=== PATIENT | male | born 1940 | race Caucasian/White ===

== ENCOUNTER → 2017-07-09 | Outpatient (CLI) | payer BC ==
[~2017-07-09] MED LIST: ALL300; ATV5X; BACI1OIN; BENZ1GEL9; CEPH250T PO; CETI10TA84 PO; CLOB-65 TOP; CRG3125; CZR50; FLNIN/; LZL125; METR0.754 TOP; MULTCHW; NAPR250T43 PO; PRED-301 PO; SPIR50TA PO; TRIA0.5O TOP; [UNRECOGNIZED DRUG - OTHER]
--- NOTE | 2017-07-09 08:03 | DIAGNOSTIC IMAGING REPORT ---
ULTRASOUND EXAM AAA SCREEN CLINICAL HISTORY: 76 years-old Male presenting with AAA SCREENING. TECHNIQUE: Real-time grayscale and color and spectral Doppler ultrasound imaging of the abdominal aorta and iliac arteries was performed. COMPARISON: 02/26/2006. FINDINGS: Proximal aorta: Patent. Transverse dimension 2.0 x 1.9 cm. Mid aorta: Patent. Transverse dimension 2.1 x 2.0 cm. Distal aorta: Patent. Transverse dimension 1.9 x 1.8 cm. Right iliac artery: Patent. Transverse dimension 1.5 cm. Left iliac artery: Patent. Transverse dimension 1.3 cm. IMPRESSION: 1. No evidence of abdominal aortic aneurysm. Electronically signed by: Isidoro Joiner M.D. 07/09/2017 8:02 AM Dictated Date/Time: 07/09/2017 8:00 AM
== END | disposition home or self-care (01) ==
LOC: C.ULTR 07:28
PROVIDERS: ATTEND Internal Medicine
DX: F17.200 Nicotine dependence, unspecified, uncomplicated (principal)

== ENCOUNTER 2021-03-16 16:11 | Observation (INO) ==
[2021-03-16] MEDS ORDERED: SODIUM CHLORIDE 0.9% 1000ML 1,000 ML IV SCH (17:15)
--- NOTE | 2021-03-16 17:46 | XRay Report ---
XR chest 1V portable CLINICAL HISTORY: weakness COMPARISON STUDY: No previous studies for comparison. FINDINGS: Lung volumes are normal. Lungs are clear. There is no pneumothorax or pleural effusion. Car diac size is normal. Mediastinal contours are normal. There is no evidence for pulmonary edema. IMPRESSION: No acute cardiopulmonary findings. ACT 112: Negative or not required by law. Electronically signed by: Kevin Rogers M.D. 03/16/2021 5:45 PM
[2021-03-16 18:13] LABS: Basophils # (auto) 0.01 K/uL (0-0.2); Basophils % (auto) 0.2 %; Eosinophils # (auto) 0.01 K/uL (0-0.5); Eosinophils % (auto) 0.2 %; Hematocrit (blood only) 33.1 % (42-52); Hemoglobin 11.2 g/dL (14.0-18.0); Immature Granulocytes # (auto) 0.03 K/uL (0.00-0.02); Immature Granulocytes % (auto) 0.7 %; Lymphocytes # (auto) 0.71 K/uL (1.2-3.4); Lymphocytes % (auto) 16.6 %; Mean Corpuscular Hemoglobin 37.7 pg (25-34); Mean Corpuscular Hgb Conc 33.8 g/dL (32-36); Mean Corpuscular Volume 111.4 fL (80-100); Mean Platelet Volume 9.6 fL (7.4-10.4); Monocytes # (auto) 0.58 K/uL (0.11-0.59); Monocytes % (auto) 13.6 %; Neutrophils # (auto) 2.94 K/uL (1.4-6.5); Neutrophils % (auto) 68.7 %; Platelet Count 133 K/uL (130-400); RDW Coefficient of Variation 13.5 % (11.5-14.5); RDW Standard Deviation 54.4 fL (36.4-46.3); Red Blood Count 2.97 M/uL (4.7-6.1); White Blood Count 4.28 K/uL (4.8-10.8)
--- NOTE | 2021-03-16 18:32 | Emergency Department Note ---
Impression & Plan Weakness, Fall, Back pain ED Provider Note INFORMANT: Patient ED PROVIDER(S): Shorty Major MD CHIEF COMPLAINT: Weakness and fall PLAN: Disposition: Admitted Condition: Good Outpatient prescription management: none Referral: None MEDICAL DECISION MAKING: Patient presented because of weakness and he fell twice today. He was able to get himself up. He had some mild weakness appreciated on his physical examination. The patient was also noting concerning historical points of back pain, steroid use, and Increase problems with urinary incontinence. Because of this he underwent a work-up. The patient's CBC, chemistry panel and urinalysis were unremarkable. The patient has a mild decrease in his white blood cell count a mild anemia but normal platelets. He does have mild dysplastic syndrome. He has no significant change from prior. Lyme testing and anaplasmosis screen were negative. The patient underwent MR imaging of his spine because of the constellation of symptoms. Degenerative disc disease was noted but there is no cord compression. Head CT imaging was performed and was unremarkable. Due to the weakness and inability to safely get around he will need further management and work-up in the hospital. [facility] The patient was evaluated in the ER admitted for further management. Triage Nursing notes reviewed and agree them. Vital Signs: reviewed and remarkable for no significant abnormalities Differential diagnosis: Spinal cord pathology, infection, dehydration, metabolic abnormality, hypo/hyperglycemia, electrolyte disturbance, anemia, hypoxia, cardiac sources, intracerebral event, toxicologic, neurologic, as well as other pathologies. Diagnostics interpreted by me: ECG: Twelve-lead ECG normal sinus rhythm with sinus arrhythmia at [address] No [address] elevation or depression. No PVCs. Normal axis. Cardiac Monitoring: Cardiac monitoring ordered by me: The patient was placed on continuous cardiac monitoring and observed. It revealed a normal sinus rhythm at 89 beats per minute without ectopy or evidence of dysrhythmia. Imaging studies: MRI and head CT as above. I refer you to the EMR for further details. HPI: The patient is a 80 year old male who presents to the Emergency Room with complaints of weakness. This started today and is resulting in 2 falls. Patient denies any injury from the fall. He was unable to get himself up. A neighbor did help him up. The patient also notes the following associated symptoms, increased low back pain over the last few months, but noticeably over the last week. Patient also notes he has been having urinary incontinence over the last 2 months. The patient has taken prednisone for relieving factors. Current pain is rated as 4/10. Pt denies LOC, headache, fevers, chills, diaphoresis, visual changes, neck pain, chest pain, breathing difficulties, nausea, vomiting, abdominal pain, melena, hematochezia, numbness, lymphad enopathy, rash, or other complaints. ROS: See above HPI for pertinent positives & negatives. A total of 10 systems reviewed and were otherwise negative. PAST MEDICAL HISTORY:See Below , hypertension PAST SURGICAL HISTORY:See Below, FAMILY HISTORY:See Below SOCIAL HISTORY:See Below, retired HOME MEDICATIONS:See Below ALLERGIES:See Below VITALS:See Below PHYSICAL EXAMINATION: GENERAL: Awake, alert, tired-appearing, in no distress HENT: Normocephalic, atraumatic. Oropharynx unremarkable. EYES: Mildly pale conjunctiva. Sclera non-icteric. NECK: Inspection normal. Non-tender. Supple. No nuchal rigidity. FROM. No masses. RESPIRATORY: Clear to auscultation. No wheezes. No rales. Normal respiratory effort. CARDIAC: Normal rate. Normal rhythm. No murmurs. No rubs. Extremities warm and well perfused. Pulses equal. No JVD. GI: Soft, non-distended. No tenderness to palpation. No rebound or guarding. No masses. RECTAL: Deferred. MUSCULOSKELETAL: Atraumatic. Chest examination reveals no tenderness. The back is symmetrical on inspection without obvious abnormality. There is no CVA tenderness to palpation. No joint edema. LOWER EXTREMITIES: Calves are equal size bilaterally and non-tender. 2+edema. Chronic venous discoloration. NEURO: Normal sensorium. No sensory deficits noted. No saddle anesthesia. Patient has 4 out of 5 strength in the lower extremities which may be slightly worse on the left. SKIN: No rash or jaundice noted. Shorty Major MD Past Med/Surg History Medical History (Updated 03/16/21 @ 18:32 by Shorty Major MD) Anemia Anxiety Gout Hyperlipidemia Hypertension Myeloid dysplasia diagnosed 2014--remission for 2 years- CHEMO NO PORTS Osteoarthritis Sciatic leg pain left side Surgical History History of colonoscopy History of oral surgery X2 MANDIBULAR PILY History of tonsillectomy and adenoidectomy History of umbilical hernia repair Hx of left cataract extraction Hx of left inguinal hernia repair Hx of right inguinal hernia repair Social History Smoking Status: Never smoker Second Hand Exposure: No; Hx Alcohol Use: Yes Alcohol type: wine Hx Substance Use: No Preferred Language: Slovenian Communication Ability: Effective Payroll Associate Required: No Beliefs That Will Affect Care: None Current Living Situation: Alone Current Living Situation Comment: pt is a Feels Safe at Home: Yes Assistive Devices: Glasses Allergies Allergies Allergy/AdvReac Type Severity Reaction Status Date / Time codeine Allergy Mild bp Verified 04/25/19 06:24 increases guaifenesin Allergy Mild bp Verified 04/25/19 06:24 increases lactose Allergy Mild Gastrointestinal Verified 04/25/19 06:24 Upset tamsulosin Allergy Hives Unverified 03/16/21 19:12 Home Meds Home Medications Medication Instructions Recorded Confirmed allopurinol 300 mg tablet 150 mg PO QAM 08/02/18 03/16/21 atorvastatin 10 mg tablet 5 mg PO QAM 08/02/18 03/16/21 carvedilol 3.125 mg tablet 3.125 mg PO BID 08/02/18 03/16/21 cetirizine 10 mg tablet 10 mg PO DAILY PRN 08/02/18 03/16/21 clobetasol 0.05 % topical cream 1 applic TOPICAL DAILY PRN 08/02/18 03/16/21 fluticasone propionate 50 2 spray INTRANASAL DAILY PRN 08/02/18 03/16/21 mcg/actuation nasal spray,suspension (Flonase Allergy Relief) lorazepam 0.5 mg tablet 0.5 mg PO BID PRN 08/02/18 03/16/21 losartan 100 mg tablet 100 mg PO QAM 08/02/18 03/16/21 metronidazole 1 % topical cream 1 applic TOPICAL DAILY PRN 08/02/18 03/16/21 mzndooyv-hkc-bglza acid 300 1 tab PO QAM 08/02/18 03/16/21 mcg-lycopene 600 mcg-lutein 300 mcg tablet (Centrum Silver Men) prednisone 10 mg tablet 10 mg PO DAILY PRN MDD 08/02/18 03/16/21 polychondritis or gout torsemide 5 mg tablet 5 mg PO QAM 08/02/18 03/16/21 triamcinolone acetonide 0.5 % 1 applic TOPICAL BID PRN 08/02/18 03/16/21 topical cream finasteride 5 mg tablet 5 mg PO DAILY 03/16/21 03/16/21 Results & Data (ED) Vital Signs Vital Signs - 24 hr 03/16/21 16:23 03/16/21 17:54 03/16/21 18:30 Temperature 36.6 C Temperature Source Temporal Artery Scan Pulse Rate 67 67 Pulse Rate [Apical] 65 Pulse Rate from SpO2 Sensor Pulse Rhythm Regular Regular Pulse Rhythm [Apical] Regular Pulse Strength Normal Pulse Strength [Apical] Normal Respiratory Rate 16 16 23 Respiratory Effort / Characteristics Non-Labored Spontaneous Non-Labored Spontaneous Respiratory Depth Normal Normal Respiratory Pattern Regular Regular Blood Pressure 122/68 Blood Pressure [Right Arm] 144/69 H Blood Pressure Mean 86 Blood Pressure Mean [Right Arm] 94 Pulse Oximetry 96 96 97 Oxygen Delivery Method Room Air Room Air Room Air Sepsis Recent Fever Within 48 Hours No Sepsis New/Unexplained Change in Mental Status No Sepsis Action Taken by Nursing No Action Required 03/16/21 20:40 03/16/21 21:00 03/16/21 22:00 Temperature Temperature Source Pulse Rate 76 66 89 Pulse Rate [Apical] Pulse Rate from SpO2 Sensor 74 67 Pulse Rhythm Pulse Rhythm [Apical] Pulse Strength Pulse Strength [Apical] Respiratory Rate 22 14 27 H Respiratory Effort / Characteristics Respiratory Depth Respiratory Pattern Blood Pressure 126/64 139/71 139/73 Blood Pressure [Right Arm] Blood Pressure Mean 84 93 95 Blood Pressure Mean [Right Arm] Pulse Oximetry 96 98 Oxygen Delivery Method Room Air Sepsis Recent Fever Within 48 Hours Sepsis New/Unexplained Change in Mental Status Sepsis Action Taken by Nursing Laboratory Data Result diagrams: 03/16/21 Unknown 03/16/21 Unknown Lab Results 03/16/21 03/16/21 03/16/21 Range/Units 18:54 18:55 Unknown WBC 4.28 L (4.8-10.8) K/uL RBC 2.97 L (4.7-6.1) M/uL Hgb 11.2 L (14.0-18.0) g/dL Hct 33.1 L (42-52) % MCV 111.4 H (80-100) fL MCH 37.7 H (25-34) pg MCHC 33.8 (32-36) g/dL RDW Std Deviation 54.4 H (36.4-46.3) fL RDW Coeff of [place]til[place] 13.5 (11.5-14.5) % Plt Count 133 (130-400) K/uL MPV 9.6 (7.4-10.4) fL Immature Gran % (Auto) 0.7 % Neut % (Auto) 68.7 % Lymph % (Auto) 16.6 % [place] % (Auto) 13.6 % Eos % (Auto) 0.2 % Baso % (Auto) 0.2 % Neut # (Auto) 2.94 (1.4-6.5) K/uL Lymph # (Auto) 0.71 L (1.2-3.4) K/uL [place] # (Auto) 0.58 (0.11-0.59) K/uL Eos # (Auto) 0.01 (0-0.5) K/uL Baso # (Auto) 0.01 (0-0.2) K/uL Immature Gran # (Auto) 0.03 H (0.00-0.02) K/uL Tear Drop Cells 1+ Sodium (136-145) mmol/L Potassium (3.5-5.1) mmol/L Chloride (98-107) mmol/L Carbon Dioxide (21-32) mmol/L Anion Gap (3-11) BUN (7-18) mg/dl Creatinine (0.6-1.4) mg/dl Est Cr Clr Drug Dosing Est GFR ( Amer) ml/min Est GFR (Non-Af Amer) ml/min BUN/Creatinine Ratio (10-20) Glucose (70-99) mg/dl Calcium (8.5-10.1) mg/dl Magnesium (1.8-2.4) mg/dl Total Bilirubin (0.2-1) mg/dl AST (15-37) U/L ALT (12-78) U/L Alkaline Phosphatase (45-117) U/L Total Creatine Kinase (39-308) U/L Troponin I (0-0.045) ng/ml Total Protein (6.4-8.2) gm/dl Albumin (3.4-5.0) gm/dl Globulin (2.5-4.0) gm/dl Albumin/Globulin Ratio (0.9-2) TSH (0.300-4.500) uIu/ml Urine Color Yellow Urine Appearance Clear (Clear) Urine pH 8.0 H (4.5-7.5) Ur Specific [place] 1.007 (1.000-1.030) Urine Protein Negative (Negative) Urine Glucose (UA) Negative (Negative) Urine Ketones Trace H (Negative) Urine Blood Negative (Negative) Urine Nitrite Negative (Negative) Urine Bilirubin Negative (Negative) Urine Urobilinogen Negative (Negative) Ur Leukocyte Esterase Negative (Negative) Anaplasma Smear See Comment Lyme Disease IgG Ab Negative (Negative) Lyme Disease IgM Ab Negative (Negative) COVID-19 Eval Order SARS-CoV-2 (PCR) (Negative) 03/16/21 03/16/21 03/16/21 Range/Units Unknown Unknown Unknown WBC (4.8-10.8) K/uL RBC (4.7-6.1) M/uL Hgb (14.0-18.0) g/dL Hct (42-52) % MCV (80-100) fL MCH (25-34) pg MCHC (32-36) g/dL RDW Std Deviation (36.4-46.3) fL RDW Coeff of [place]til[place] (11.5-14.5) % Plt Count (130-400) K/uL MPV (7.4-10.4) fL Immature Gran % (Auto) % Neut % (Auto) % Lymph % (Auto) % [place] % (Auto) % Eos % (Auto) % Baso % (Auto) % Neut # (Auto) (1.4-6.5) K/uL Lymph # (Auto) (1.2-3.4) K/uL [place] # (Auto) (0.11-0.59) K/uL Eos # (Auto) (0-0.5) K/uL Baso # (Auto) (0-0.2) K/uL Immature Gran # (Auto) (0.00-0.02) K/uL Tear Drop Cells Sodium 137 (136-145) mmol/L Potassium 3.9 (3.5-5.1) mmol/L Chloride 105 (98-107) mmol/L Carbon Dioxide 27 (21-32) mmol/L Anion Gap 5.0 (3-11) BUN 9 (7-18) mg/dl Creatinine 0.72 (0.6-1.4) mg/dl Est Cr Clr Drug Dosing Not Reportable Est GFR ( Amer) 103.6 ml/min Est GFR (Non-Af Amer) 89.3 ml/min BUN/Creatinine Ratio 12.4 (10-20) Glucose 103 H (70-99) mg/dl Calcium 9.0 (8.5-10.1) mg/dl Magnesium 2.2 (1.8-2.4) mg/dl Total Bilirubin 0.6 (0.2-1) mg/dl AST 13 L (15-37) U/L ALT 19 (12-78) U/L Alkaline Phosphatase 80 (45-117) U/L Total Creatine Kinase 62 (39-308) U/L Troponin I < 0.015 (0-0.045) ng/ml Total Protein 7.6 (6.4-8.2) gm/dl Albumin 3.8 (3.4-5.0) gm/dl Globulin 3.8 (2.5-4.0) gm/dl Albumin/Globulin Ratio 1.0 (0.9-2) TSH 1.220 (0.300-4.500) uIu/ml Urine Color Urine Appearance (Clear) Urine pH (4.5-7.5) Ur Specific [place] (1.000-1.030) Urine Protein (Negative) Urine Glucose (UA) (Negative) Urine Ketones (Negative) Urine Blood (Negative) Urine Nitrite (Negative) Urine Bilirubin (Negative) Urine Urobilinogen (Negative) Ur Leukocyte Esterase (Negative) Anaplasma Smear Lyme Disease IgG Ab (Negative) Lyme Disease IgM Ab (Negative) COVID-19 Eval Order Covid19 at [facility] SARS-CoV-2 (PCR) NEGATIVE (Negative) Administered Medications Sodium Chloride (Nss 1000ml) 1,000 mls @ 125 mls/hr IV .Q8H [id number] Stop: 03/17/21 01:14 Last Admin: 03/16/21 21:42 Dose: 125 mls/hr Documented by: [id number] Imaging Data Radiologist's Impression: Chest X-Ray 03/16/21 17:15 XR chest 1V portable CLINICAL HISTORY: weakness COMPARISON STUDY: No previous studies for comparison. FINDINGS: Lung volumes are normal. Lungs are clear. There is no pneumothorax or pleural effusion. Cardiac size is normal. Mediastinal contours are normal. There is no evidence for pulmonary edema. IMPRESSION: No acute cardiopulmonary findings. ACT 112: Negative or not required by law. Electronically signed by: Kevin Rogers M.D. 03/16/2021 5:45 PM Discharge Plan Visit Data Chief Complaint: Fall Stated Complaint: FELL TWICE, LEGS ARE GIVING OUT ED Provider: Shorty Major Discharge Problem: Weakness, Fall, Back pain Forms Stand Alone Forms: My [facility] Prescriptions Prescriptions: No Action atorvastatin 10 mg Tablet 5 mg PO QAM RF: 0 torsemide 5 mg Tablet 5 mg PO QAM RF: 0 prednisone 10 mg Tablet 10 mg PO DAILY MDD polychondritis or gout PRN (Reason: Other) RF: 0 triamcinolone acetonide 0.5 % Cream 1 applic TOPICAL BID PRN (Reason: Rash) RF: 0 cetirizine 10 mg Tablet 10 mg PO DAILY PRN (Reason: Allergy Symptoms) RF: 0 clobetasol 0.05 % Cream 1 applic TOPICAL DAILY PRN (Reason: Rash) RF: 0 carvedilol 3.125 mg Tablet 3.125 mg PO BID RF: 0 lorazepam 0.5 mg Tablet 0.5 mg PO BID PRN (Reason: Anxiety) RF: 0 allopurinol 300 mg Tablet 150 mg PO QAM RF: 0 losartan 100 mg Tablet 100 mg PO QAM RF: 0 fluticasone propionate [Flonase Allergy Relief] 50 mcg/actuation [place],Suspension 2 spray INTRANASAL DAILY PRN (Reason: Allergy Symptoms) RF: 0 metronidazole 1 % Cream 1 applic TOPICAL DAILY PRN (Reason: Rash) RF: 0 Centrum Silver Men 300-600-300 mcg Tablet 1 tab PO QAM RF: 0 finasteride 5 mg tablet 5 mg PO DAILY RF: 0 Referrals Referrals: Tian Harrington, [Primary Care Provider] -
[2021-03-16 18:38] LABS: Alanine Aminotransferase 19 U/L (12-78); Albumin Level 3.8 gm/dl (3.4-5.0); Aspartate Aminotransferase 13 U/L (15-37); BUN Creatinine Ratio 12.4 (10-20); Blood Urea Nitrogen 9 mg/dl (7-18); Carbon Dioxide 27 mmol/L (21-32); Chloride 105 mmol/L (98-107); Est GFR (African American) 103.6 ml/min; Est GFR (Non-African American) 89.3 ml/min; Glucose 103 mg/dl (70-99); Magnesium 2.2 mg/dl (1.8-2.4); Potassium 3.9 mmol/L (3.5-5.1); Sodium 137 mmol/L (136-145)
[2021-03-16 18:49] LABS: Alkaline Phosphatase 80 U/L (45-117); Bilirubin,Total 0.6 mg/dl (0.2-1); Creatine Kinase 62 U/L (39-308); Globulin 3.8 gm/dl (2.5-4.0); Total Protein 7.6 gm/dl (6.4-8.2); Troponin I < 0.015 ng/ml (0-0.045)
[2021-03-16 19:01] LABS: Tear Drop Cells 1+
[2021-03-16 19:11] LABS: Appearance Urine Clear (Clear); Bilirubin Urine Negative (Negative); Blood Urine Negative (Negative); Color Urine Yellow; Glucose Urine UA Negative (Negative); Ketones Urine Trace (Negative); Leukocyte Esterase Urine Negative (Negative); Nitrite Urine Negative (Negative); Protein Urine Negative (Negative); Specific Gravity Urine 1.007 (1.000-1.030); Urobilinogen Urine Negative (Negative)
[2021-03-16 20:35] LABS: Lyme Ab IgG w/WB Rflx Negative (Negative); Lyme Ab IgM w/WB Rflx Negative (Negative)
--- NOTE | 2021-03-17 01:35 | History and Physical Report ---
DATE OF ADMISSION: 03/16/2021. CHIEF COMPLAINT: Fall. HISTORY OF PRESENT ILLNESS: This is a 80-year-old male with past medical history significant for hyperlipidemia, hypertension, varicose veins of the leg and venous insufficiency, gout arthropathy, neuropathy, myelodysplastic syndrome, anemia, relapsing polychondritis, history of squamous cell carcinoma, who lives alone, ambulates with a walker, presents with a fall. The patient says he fell early in the morning at 3:00 a.m. and could not get up and he laid down on the floor for 3 hours and neighbor had to come and help him up to get in the bed. After that, he walked a little bit, but he was very shaky and again he fell at 3:00 p.m. and could not get up and he was not able to ambulate since then, that is the reason he came here. He has chronic back pain. He is on prednisone. The back pain is okay now. He had workup of MRI scan of the lumbar back and CT of the head, no acute findings. The patient is currently resting comfortably and hemodynamically stable. Denies any headache, no dizziness. Some lightheadedness. Denies any blurred vision, double vision, no earache, no runny nose, no sore throat, no cough. Appetite is okay. No dysphagia, no chest pain, no shortness of breath, no nausea, no abdominal pain. He is somewhat constipated. Once in a while he gets blood in the stool and he has urinary incontinence going on for the last 3 months, following with [facility]. Denies any hematuria. He has some swelling in the legs. ALLERGIES: CODEINE, GUAIFENESIN, LACTOSE, FLOMAX. PAST MEDICAL HISTORY: As mentioned above. PAST SURGICAL HISTORY: Colonoscopy with biopsy, dental surgery, right and left inguinal hernia surgery, tonsillectomy, bilateral cataract surgery, umbilical hernia repair. MEDICATIONS: Currently the patient is on allopurinol 150 mg p.o. a.m., atorvastatin 5 mg p.o. a.m., Coreg 3.125 mg p.o. b.i.d., centrum Silver one tablet a.m., cetirizine 10 mg p.o. daily p.r.n., clobetasol 1 application topical daily, finasteride 5 mg p.o. daily, Flonase 2 sprays intranasal daily p.r.n., Ativan 0.5 mg p.o. b.i.d. p.r.n., losartan 50 mg p.o. daily, metronidazole topical daily, prednisone 5 mg p.o. daily, torsemide 5 mg p.o. a.m., triamcinolone 1 application topical b.i.d. p.r.n. FAMILY HISTORY: Significant for mother had heart failure, hypertension, and thyroid disorder; father had hypertension; sister has heart disease and thyroid disorder. SOCIAL HISTORY: , currently lives alone. Former smoker, quit in 1995, smoked quarter pack a day for 15 years. Alcohol 3-4 glasses of wine a day. No drug use. REVIEW OF SYSTEMS: As per HPI. Rest of the review of systems is negative. PHYSICAL EXAMINATION: GENERAL: The patient is of moderate build, not in acute distress. VITAL SIGNS: Temperature 36.6, pulse 89, respiratory rate 27, blood pressure 113/73, oxygen 98% on room air. HEENT: Pupils equal, round and reactive to light. Oral mucosa moist. NECK: No JVD, no neck masses. CARDIOVASCULAR: S1 and S2 heard, regular rate and rhythm. No murmur, no gallop. RESPIRATORY SYSTEM: Normal AP diameter. No accessory muscle use. No wheezing, no crackles. ABDOMEN: Soft, bowel sounds present, nontender, no distention. CENTRAL NERVOUS SYSTEM: Alert and oriented. Speech is clear. No facial droop. Insight is good. Moves extremities, some weakness in the lower extremities seen. EXTREMITIES: Mild bilateral lower extremity pedal edema present, no erythema seen. LABORATORY DATA: WBC 4.2, hemoglobin 11.2, hematocrit 33.1, platelets 133. Sodium 137, potassium 3.9, chloride 105, bicarbonate 27, BUN 9, creatinine 0.7, serum glucose 103, calcium 9, magnesium 2.2, total bilirubin 0.6, AST 13, ALT 19, alkaline phosphatase 80, total creatinine kinase 62. Troponin I less than 0.015. TSH 1.22. Urinalysis negative. SARS-CoV-2 PCR negative. Lyme screen negative. Anaplasmosis smear negative. IMAGING DATA: CT of the head, preliminary report, [id number] central atrophy and periventricular white matter low density consistent with chronic small vessel disease, old lacunar infarct in the left basal ganglia measuring 1.6 cm long axis. No evidence of acute large vessel infarct. No skull fracture or significant scalp hematoma. Lumbar spine MRI, preliminary report, no acute findings, multilevel degenerative disk and facet disease. Chest x-ray, no acute cardiopulmonary findings. EKG: Normal sinus rhythm with sinus arrhythmia at a rate of 70, QTc at 486, nonspecific ST-T abnormality. ASSESSMENT AND PLAN: This is a 80-year-old male who presents with a fall. 1. Fall and ambulatory dysfunction: There is some weakness in the lower extremities. MRI of lumbar spine and CT of the head, there are no acute findings. The patient does not want to get MRI of the head currently. Will do PT, OT and observe in the medical floor. 2. History of urinary incontinence: Going on for last 3 months, on Proscar. Follow up with urology. 3. Anemia: Hemoglobin of 11.2, seems to be stable. followup with pcp. 4. Lower extremity edema: History of venous insufficiency, on torsemide, which will be continued. 5. Chronic diastolic congestive heart failure: The patient had echo in November 2020 showing EF of 55% and grade 2 diastolic dysfunction. Continue his home diuretics and losartan. 6. History of chronic back pain: Relapsing polychondritis, on prednisone. 7. History of myelodysplastic syndrome: Anemia could be from the myelodysplastic syndrome. Follow up with PCP. 8. Deep venous thrombosis prophylaxis: Heparin subcutaneous. DISPOSITION: Closely monitor in the medical floor. PT/OT prior to discharge. Social service to help with discharge planning. Level 1 full code. Job ID: [id number] [facility]
[2021-03-17] MEDS ORDERED: FLUTICASONE PROPIONATE NA SPR 16 GM BTL PRN (01:42)
[2021-03-17] MEDS ORDERED: ACETAMINOPHEN 325 MG TAB PO PRN (01:42)
[2021-03-17] MEDS ORDERED: TRIAMCINOLONE ACET 0.5% CR 15 GM TUBE TOP PRN (01:42)
[2021-03-17] MEDS ORDERED: POLYETHYLENE (MIRALAX) 17 GM PACK PO PRN (01:42)
[2021-03-17] MEDS ORDERED: ONDANSETRON INJ 2 MG/ML 2 ML VIAL IV PRN (01:42)
[2021-03-17] MEDS ORDERED: LORazepam 0.5 MG TAB PO PRN (01:42)
[2021-03-17] MEDS ORDERED: CLOBETASOL PROPIONATE 0.05% OINT 15 GM TUBE EXT PRN (02:06)
[2021-03-17 06:10] LABS: Basophils # (auto) 0.01 K/uL (0-0.2); Basophils % (auto) 0.3 %; Eosinophils # (auto) 0.02 K/uL (0-0.5); Eosinophils % (auto) 0.5 %; Hematocrit (blood only) 29.8 % (42-52); Hemoglobin 10.1 g/dL (14.0-18.0); Immature Granulocytes # (auto) 0.02 K/uL (0.00-0.02); Immature Granulocytes % (auto) 0.5 %; Lymphocytes # (auto) 0.78 K/uL (1.2-3.4); Lymphocytes % (auto) 21.3 %; Mean Corpuscular Hemoglobin 37.8 pg (25-34); Mean Corpuscular Hgb Conc 33.9 g/dL (32-36); Mean Corpuscular Volume 111.6 fL (80-100); Mean Platelet Volume 10.1 fL (7.4-10.4); Monocytes # (auto) 0.64 K/uL (0.11-0.59); Monocytes % (auto) 17.5 %; Neutrophils # (auto) 2.19 K/uL (1.4-6.5); Neutrophils % (auto) 59.9 %; Platelet Count 112 K/uL (130-400); RDW Coefficient of Variation 13.4 % (11.5-14.5); RDW Standard Deviation 54.4 fL (36.4-46.3); Red Blood Count 2.67 M/uL (4.7-6.1); White Blood Count 3.66 K/uL (4.8-10.8)
[2021-03-17 06:37] LABS: Macrocytosis Present; Tear Drop Cells 1+
[2021-03-17 06:39] LABS: BUN Creatinine Ratio 12.1 (10-20); Calcium 8.7 mg/dl (8.5-10.1); Creatinine Clr Calc Pharmacy 121.5 ml/min; Est GFR (African American) 115.7 ml/min; Est GFR (Non-African American) 99.8 ml/min; Magnesium 1.9 mg/dl (1.8-2.4); Potassium 3.5 mmol/L (3.5-5.1)
--- NOTE | 2021-03-17 06:52 | Magnetic Resonance Report ---
MRI OF THE LUMBAR SPINE WITHOUT IV CONTRAST CLINICAL HISTORY: Low back pain. Lower extremity weakness. Incontinence. COMPARISON STUDY: No priors. TECHNIQUE: MRI of the lumbar spine is performed utilizing various T1 and T2-weighted sequences in the axial and sagittal planes. IV contrast was not administered for this examination. FINDINGS: Marrow signal intensity is heterogeneous and diffusely diminished. Vertebral body height an d alignment are maintained throughout the lumbar spine. There is a minimal chronic superior endplate compression deformity of T12. Small anterior and lateral marginal osteophytes are seen throughout. Th e transverse and spinous processes appear intact. There is no evidence of spondylolysis. A hemangioma is noted in the body of L2. No destructive bony lesion is seen. Chronic degenerative endplate change s noted at several levels. No significant endplate edema is identified. Intervertebral discs: Degenerative disc desiccation is seen throughout the lumbar spine. There is mod erate loss of height at L5-S1. Spinal cord: The visualized spinal cord is normal in morphology and signal intensity. The conus medul jory terminates at the level of L1. The nerve roots of the cauda equina are normal in morphology. L1-L2: The central canal and neural foramina are clear. L2-L3: There is minimal disc bulge. No acquired compromise of the central canal is identified. There is mild bilateral subarticular stenosis. In conjunction with facet arthropathy there is minimal bilat eral neural foraminal narrowing. L3-L4: There is minimal posterior disc bulge with annular fissure. This abuts the transiting nerve ro ots. No significant acquired compromise of the central canal is identified. There is bilateral subart icular stenosis, right greater than left. This may abut the exiting right L3 nerve root. In conjuncti on with facet arthropathy, there is mild to moderate bilateral neural foraminal stenosis, right great er than left. L4-L5: There is broad-based posterior disc bulge with annular fissure. This abuts the transiting nerv e roots. No significant acquired compromise of the central canal is identified. There is right greate r than left subarticular stenosis. This may impinge on the exiting right L4 nerve root. In conjunctio n with facet arthropathy, there is moderate right and mild left neural foraminal stenosis. L5-S1: There is broad-based posterior disc bulge with annular fissure. No significant acquired compro mise of the central canal is identified. There is mild bilateral subarticular stenosis. In conjunctio n with facet arthropathy, there is mild bilateral neural foraminal narrowing. Sacrum: The visualized sacrum is normal in morphology and signal intensity. Soft tissues: There is mild fatty atrophy of the paraspinous musculature. The partially imaged kidney s demonstrate cortical atrophy. Mild presacral edema is nonspecific. The bladder is distended. The bl adder wall appears thickened and trabeculated indicating chronic outlet obstruction. IMPRESSION: 1. There is diffuse drop in bone marrow signal intensity on all sequences. This is nonspecific and co uld be seen with a marrow replacement process. Correlation with the clinical/medical history will be essential. 2. No acute bony abnormality is seen involving the lumbar spine. 3. There is no significant acquired compromise of the central canal. 4. Mild spondylotic change as above. See discussion for detailed level by level analysis. 5. The bladder is distended and shows evidence of chronic outlet obstruction. 6. There is mild nonspecific presacral edema. Dictated: 03/17/2021 6:11 AM Transcribed: 03/17/2021 6:44 AM Ramonita [id number] [facility] Electronically signed by: Freddy Oviedo M.D. 03/17/2021 6:51 AM
--- NOTE | 2021-03-17 07:54 | Hospitalist Progress Note ---
Date of Service March 17, 2021 Assessment & Plan Admission and Anticipated Discharge Date Admission Date: March 16, 2021 Subjective Says drinks two glasses of wine every day. Will monitor for any withdrawal sy mptoms.Thanks Results & Data Results & Data ([facility]) Vital Signs (Past 12 Hours) Vital Signs Temp Pulse Pulse Resp BP BP Pulse Ox 03/17/21 07:39 37.3 C 74 17 147/75 H 97 03/17/21 01:32 37.1 C 80 18 167/73 H 94 03/17/21 00:00 65 25 H 135/67 94 03/16/21 23:00 66 22 125/99 97 03/16/21 22:00 89 27 H 139/73 03/16/21 21:00 66 14 139/71 98 03/16/21 20:40 76 22 126/64 96
--- NOTE | 2021-03-17 08:57 | CT Scan Report ---
CT SCAN OF THE BRAIN WITHOUT IV CONTRAST CLINICAL HISTORY: Generalized weakness. Falls. COMPARISON STUDY: No priors. TECHNIQUE: Unenhanced axial CT scan of the brain is performed from the vertex to the skull base. A do se lowering technique was utilized adhering to the principles of ALARA. CT DOSE: 614.27 mGy.cm FINDINGS: Brain parenchyma: There are age-related involutional changes noting mild to moderate subcortical and periventricular microangiopathic change. There is no hemorrhage, mass effect, or evidence of acute t erritorial ischemia by CT criteria. A chronic lacunar infarct is noted in the left basal ganglia. Gra y-white matter differentiation is preserved. No extra-axial fluid collection is seen. Ventricles, sulci, cisterns: Prominent secondary to involutional change. Intracranial vasculature: There is atherosclerotic calcification of the cavernous carotid arteries. Calvarium: Unremarkable. Sinuses and mastoids: The visualized paranasal sinuses are clear. The mastoid air cells are well pneu matized. Orbits: The bony orbits are grossly intact. There are bilateral ocular lens implants. IMPRESSION: There is no hemorrhage, mass effect, or evidence of acute territorial ischemia by CT michellet og. ACT 112: Negative or not required by law. Electronically signed by: Freddy Oviedo M.D. 03/17/2021 8:56 AM
[2021-03-17] MEDS: allopurinoL 300 MG TAB PO SCH (10:05)
[2021-03-17] MEDS: TORSEMIDE 10 MG TAB PO SCH (10:05)
[2021-03-17] MEDS: ATORVASTATIN 10 MG TAB PO SCH (10:06)
[2021-03-17] MEDS: HEPARIN SOD 5,000 UNIT/0.5 ML VIAL SQ SCH ×2 (10:06→20:23)
[2021-03-17] MEDS: LOSARTAN POTASSIUM 50 MG TAB PO SCH (10:07)
[2021-03-17] MEDS: predniSONE 5 MG TAB PO SCH (10:07)
[2021-03-17] MEDS: FINASTERIDE 5 MG TAB PO SCH ×2 (10:07→10:11)
[2021-03-17] MEDS: carvediloL 3.125 MG TAB PO SCH ×2 (10:08→20:23)
[2021-03-17] MEDS: CEROVITE ADV FORMULA TAB PO SCH (10:08)
[2021-03-17] MEDS: CETIRIZINE HCL 10 MG TABLET PO PRN (20:52)
--- NOTE | 2021-03-18 07:52 | Hospitalist Progress Note ---
Date of Service March 18, 2021 Assessment & Plan (1) Fall: (2) Back pain: (3) Weakness: Plan: This is a 80-year-old male who presents with a fall. 1. Fall and ambulatory dysfunction: There is some weakness in the lower extremities. MRI of lumbar spine and CT of the head, there are no acute findings. The patient does not want to get MRI of the head currently. PT, OT -o btained- recommend SNF, patient is not interested in SNF and wants to go home Patient sister at the bedside, reports that patient was seen last time by her in November, and shuffles when he walks Patient also reports incontinence for some time On my evaluation, patient can hardly sit up from lying position in bed, or to turn on his side We will continue PT OT, will discuss further with neurology , ? NPH, ? Parkinson's, on CT noted chronic lacunar infarct in left basal ganglia Cont. to observe in the medical floor. 2. History of urinary incontinence: Going on for last 3 months, on Proscar. Follow up with urology. 3. Anemia: Hemoglobin of 11.2, seems to be stable. followup with pcp. 4. Lower extremity edema: History of venous insufficiency, on torsemide, which will be continued. Currently no significant edema noted on exam. 5. Chronic diastolic congestive heart failure: The patient had echo in November 2020 showing EF of 55% and grade 2 diastolic dysfunction. Continue his home diuretics and losartan. 6. History of chronic back pain: Relapsing polychondritis, on prednisone. 7. History of myelodysplastic syndrome: Anemia could be from the myelodysplastic syndrome. Follow up with PCP. DVT prophylaxis: Heparin subcutaneous. DISPOSITION: Closely monitor in the medical floor. PT/OT prior to discharge. Social service to help with discharge planning. Level 1 full code. Admission and Anticipated Discharge Date Admission Date: March 16, 2021 Subjective Patient seen in follow-up after falls, motor dysfunction Currently in bed in no acute distress, says that he feels well Per PT evaluation, patient needs SNF He is not interested in SNF, says that he is okay to be at home however on my further evaluation he seems to move with difficulty - can hardly sit up in bed from lying position Patient's sister visiting from [place] at the bedside and updated Patient otherwise denies any chest pain, shortness of breath, fevers chills, or feeling sick at all prior to admission Reports incontinence going on for some time Per sister, she saw him last time in November, patient has shuffles when walking Review of Systems Review of Systems: All systems reviewed & are unremarkable except as noted in Subjective Physical Exam Physical Exam: GENERAL: The patient is of moderate build, not in acute distress. HEENT: NC/A, EOMI, Pupils equal, round and reactive to light. Oral mucosa moist. NECK: No JVD, no neck masses. CARDIOVASCULAR: S1 and S2 heard, regular rate and rhythm. No murmur, no gallop. RESPIRATORY: Normal AP diameter. No accessory muscle use. No wheezing, no crackles. ABDOMEN: Soft, bowel sounds present, nontender, no distention. NEURO: Alert and oriented. Speech is clear. No facial droop. Moves extremities while laying in bed. However generalized weakness noticed, such as patient has difficulty sitting up from lying position, even turning in bed is very slow and seems difficult for the patient. EXTREMITIES: Mild bilateral lower extremity pedal edema present, no erythema seen. Results & Data Results & Data ([facility]) Vital Signs (Past 12 Hours) Vital Signs Temp Pulse Resp BP BP Pulse Ox 03/17/21 22:16 36.7 C 57 L 16 126/75 96 03/17/21 20:21 61 116/70 95
[2021-03-18] MEDS: FINASTERIDE 5 MG TAB PO SCH (08:59)
[2021-03-18] MEDS: THIAMINE HCL 100 MG TAB PO SCH (09:00)
[2021-03-18] MEDS: FOLIC ACID 1 MG TAB PO SCH (09:00)
[2021-03-18] MEDS: LOSARTAN POTASSIUM 50 MG TAB PO SCH (09:00)
[2021-03-18] MEDS: HEPARIN SOD 5,000 UNIT/0.5 ML VIAL SQ SCH ×2 (09:00→21:00)
[2021-03-18] MEDS: predniSONE 5 MG TAB PO SCH (09:00)
[2021-03-18] MEDS: TORSEMIDE 10 MG TAB PO SCH (09:00)
[2021-03-18] MEDS: CEROVITE ADV FORMULA TAB PO SCH (09:00)
[2021-03-18] MEDS: CYANOCOBALAMIN 500 MCG TABLET (VITAMIN B-12) PO SCH (09:01)
[2021-03-18] MEDS: allopurinoL 300 MG TAB PO SCH (09:01)
[2021-03-18] MEDS: carvediloL 3.125 MG TAB PO SCH ×2 (09:01→20:59)
[2021-03-18] MEDS: ATORVASTATIN 10 MG TAB PO SCH (09:01)
[2021-03-18 09:30] LABS: Hematocrit (blood only) 31.9 % (42-52); Hemoglobin 10.9 g/dL (14.0-18.0); Mean Corpuscular Hemoglobin 37.8 pg (25-34); Mean Corpuscular Hgb Conc 34.2 g/dL (32-36); Mean Corpuscular Volume 110.8 fL (80-100); Mean Platelet Volume 9.6 fL (7.4-10.4); Platelet Count 102 K/uL (130-400); RDW Coefficient of Variation 13.6 % (11.5-14.5); RDW Standard Deviation 54.5 fL (36.4-46.3); Red Blood Count 2.88 M/uL (4.7-6.1); White Blood Count 4.03 K/uL (4.8-10.8)
[2021-03-18 09:56] LABS: BUN Creatinine Ratio 15.8 (10-20); Calcium 9.1 mg/dl (8.5-10.1); Creatinine Clr Calc Pharmacy 91.5 ml/min; Est GFR (Non-African American) 88.8 ml/min; Magnesium 1.8 mg/dl (1.8-2.4); Potassium 3.2 mmol/L (3.5-5.1)
[2021-03-18 09:57] LABS: Phosphorus 3.2 mg/dl (2.5-4.9)
[2021-03-18] MEDS ORDERED: POTASSIUM CHLORIDE CRTAB 20 MEQ TABCR PO STA (11:01)
--- NOTE | 2021-03-18 11:02 | Hospitalist Progress Note ---
Date of Service March 18, 2021 Assessment & Plan (1) Fall: (2) Back pain: (3) Weakness: Plan: This is a 80-year-old male who presents with a fall. 1. Fall and ambulatory dysfunction: There is some weakness in the lower extremities. MRI of lumbar spine and CT of the head without any acute findings. The patient does not want to get MRI of the head currently. PT, OT -obtained- recommend SNF/rehab, patient is not interested in SNF/rehab and wants to go home Patient's sister at the bedside, reports that patient was seen last time by her in November, and shuffles when he walks Patient also reports incontinence for some time On my evaluation, patient can hardly sit up from lying position in bed, or to turn on his side We will continue PT OT, will discuss further with neurology , ? NPH, ? 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 to observe in the medical floor. Per neurology - may have several reasons for weakness/ amb. dysfunction MRI cervical spine ordered B12, folic acid level B1 level ordered MCV elevated poss. B12 deficiency Also started on B12, thiamine, folic acid supplement 2. History of urinary incontinence: Going on for last 3 months, on Proscar. Follow up with urology. 3. Anemia: Hemoglobin of 11.2, seems to be stable. MCV elevated, likely B12 def. and folic acid def., levels pending started on supplement Follow up with pcp. 4. Lower extremity edema: History of venous insufficiency, on torsemide, which will be continued. Currently no significant edema noted on exam. 5. Chronic diastolic congestive heart failure: The patient had echo in November 2020 showing EF of 55% and grade 2 diastolic dysfunction. Continue his home diuretics and losartan. 6. History of chronic back pain: Relapsing polychondritis, on prednisone. 7. History of myelodysplastic syndrome: Anemia could be from the myelodysplastic syndrome. Follow up with PCP. DVT prophylaxis: Heparin subcutaneous. DISPOSITION: Closely monitor in the medical floor. PT/OT prior to discharge. Social service to help with discharge planning. Level 1 full code. Admission and Anticipated Discharge Date Admission Date: March 18, 2021 Subjective Patient seen in follow-up after falls, ambulatory dysfunction Currently sitting up in chair in no acute distress, says that he feels well Per PT evaluation, patient needs SNF/ rehab however he is not interested in SNF/ rehab Patient's sister visiting from [place] at the bedside and updated- trying to persuade the pt about the rehab, also setting up home helper for him Patient otherwise denies any chest pain, shortness of breath, fevers chills, or feeling sick at all prior to admission Reports incontinence going on for some time Per sister, she saw him last time in November, patient shuffles when walking Given amb. dysfunction, shuffling gait, incontinence and per pt hx of neuropathy, will have further eval by neurology Pt also drinks several glasses of wine a day Review of Systems Review of Systems: All systems reviewed & are unremarkable except as noted in Subjective Physical Exam Physical Exam: GENERAL: The patient is of moderate build, not in acute distress. HEENT: NC/A, EOMI, Pupils equal, round and reactive to light. Oral mucosa moist. NECK: No JVD, no neck masses. CARDIOVASCULAR: S1 and S2 heard, regular rate and rhythm. No murmur, no gallop. RESPIRATORY: Normal AP diameter. No accessory muscle use. No wheezing, no crackles. ABDOMEN: Soft, bowel sounds present, nontender, no distention. NEURO: Alert and oriented. Speech is clear. No facial droop. Moves extremities. However generalized weakness and tony. LE weakness noticed EXTREMITIES: Mild bilateral lower extremity pedal edema present, no erythema seen. Results & Data Results & Data ([facility]) Vital Signs (Past 12 Hours) Vital Signs Temp Pulse Resp BP Pulse Ox 03/18/21 08:39 36.6 C 81 18 125/76 95 Laboratory Results 03/18/21 03/18/21 Range/Units 09:04 09:04 WBC 4.03 L (4.8-10.8) K/uL RBC 2.88 L (4.7-6.1) M/uL Hgb 10.9 L (14.0-18.0) g/dL Hct 31.9 L (42-52) % MCV 110.8 H (80-100) fL MCH 37.8 H (25-34) pg MCHC 34.2 (32-36) g/dL RDW Std Deviation 54.5 H (36.4-46.3) fL RDW Coeff of Otilia 13.6 (11.5-14.5) % Plt Count 102 L (130-400) K/uL MPV 9.6 (7.4-10.4) fL Sodium 138 (136-145) mmol/L Potassium 3.2 L (3.5-5.1) mmol/L Chloride 103 (98-107) mmol/L Carbon Dioxide 26 (21-32) mmol/L Anion Gap 9.0 (3-11) BUN 12 D (7-18) mg/dl Creatinine 0.73 (0.6-1.4) mg/dl Est Cr Clr Drug Dosing 91.5 ml/min Est GFR ( Amer) 103.0 ml/min Est GFR (Non-Af Amer) 88.8 ml/min BUN/Creatinine Ratio 15.8 (10-20) Glucose 140 H (70-99) mg/dl Calcium 9.1 (8.5-10.1) mg/dl Phosphorus 3.2 (2.5-4.9) mg/dl Magnesium 1.8 (1.8-2.4) mg/dl Medications Administered Current Inpatient Medications Acetaminophen (Acetaminophen 325 Mg Tab) 650 mg PO Q4H PRN PRN Reason: pain/fever Stop: 04/16/21 01:41 Allopurinol (Allopurinol 300 Mg Tab) [facility] Stop: 04/16/21 08:59 Last Admin: 03/18/21 09:01 Dose: 150 mg Documented by: Atorvastatin Calcium (Atorvastatin 10 Mg Tab) 5 mg PO QAM [facility] Stop: 04/16/21 08:59 Last Admin: 03/18/21 09:01 Dose: 5 mg Documented by: Carvedilol (Carvedilol 3.125 Mg Tab) 3.125 mg PO BID [facility] Stop: 04/16/21 08:59 Last Admin: 03/18/21 09:01 Dose: 3.125 mg Documented by: Cetirizine HCl (Cetirizine Hcl 10 Mg Tablet) 10 mg PO DAILY PRN PRN Reason: Allergy Symptoms Stop: 04/16/21 01:41 Last Admin: 03/17/21 20:52 Dose: 10 mg Documented by: Clobetasol Propionate (Clobetasol Propionate 0.05% Oint 15 Gm Tube) 1 appln EXT DAILY PRN PRN Reason: Rash Stop: 04/16/21 02:05 Cyanocobalamin (Cyanocobalamin 500 Mcg Tablet (Vitamin B-12)) 1,000 mcg PO QAM [facility] Stop: 04/17/21 08:59 Last Admin: 03/18/21 09:01 Dose: 1,000 mcg Documented by: Finasteride (Finasteride 5 Mg Tab) 5 mg PO DAILY [facility] Stop: 04/16/21 08:59 Last Admin: 03/18/21 08:59 Dose: Not Given Documented by: Fluticasone Propionate (Fluticasone Propionate Na Spr 16 Gm Btl) 2 sprays NA DAILY PRN PRN Reason: Allergy Symptoms Stop: 04/16/21 01:41 Folic Acid (Folic Acid 1 Mg Tab) 1 mg PO QAM [facility] Stop: 04/17/21 08:59 Last Admin: 03/18/21 09:00 Dose: 1 mg Documented by: Heparin Sodium (Porcine) (Heparin Sod 5,000 Unit/0.5 Ml Vial) 5,000 units SQ Q12 [facility] Stop: 04/16/21 08:59 Last Admin: 03/18/21 09:00 Dose: Not Given Documented by: Lorazepam (Lorazepam 0.5 Mg Tab) 0.5 mg PO BID PRN PRN Reason: Anxiety Stop: 04/16/21 01:41 Losartan Potassium (Losartan Potassium 50 Mg Tab) 50 mg PO DAILY [facility] Stop: 04/16/21 08:59 Last Admin: 03/18/21 09:00 Dose: 50 mg Documented by: Miscellaneous (Metrocream~Order Awaiting Action) 1 ea N/A QS [facility] Stop: 04/16/21 07:59 Last Admin: 03/18/21 08:58 Dose: Not Given Documented by: Multivitamins/Minerals (Cerovite Adv Formula Tab) 1 tab PO QAM [facility] Stop: 04/16/21 08:59 Last Admin: 03/18/21 09:00 Dose: 1 tab Documented by: Ondansetron HCl (Ondansetron Inj 2 Mg/Ml 2 Ml Vial) 4 mg IV Q6H PRN PRN Reason: Nausea Stop: 04/16/21 01:41 Polyethylene Glycol (Polyethylene (Miralax) 17 Gm Pack) 17 gm PO DAILY PRN PRN Reason: Constipation Stop: 04/16/21 01:41 Potassium Chloride (Potassium Chloride Crtab 20 Meq Tabcr) 40 meq PO NOW STA Stop: 03/18/21 11:02 Prednisone (Prednisone 5 Mg Tab) 5 mg PO DAILY [facility] Stop: 04/16/21 08:59 Last Admin: 03/18/21 09:00 Dose: 5 mg Documented by: Thiamine HCl (Thiamine Hcl 100 Mg Tab) 100 mg PO QAM [facility] Stop: 04/17/21 08:59 Last Admin: 03/18/21 09:00 Dose: 100 mg Documented by: Torsemide (Torsemide 10 Mg Tab) 5 mg PO QAM [facility] Stop: 04/16/21 08:59 Last Admin: 03/18/21 09:00 Dose: 5 mg Documented by: Triamcinolone Acetonide (Triamcinolone Acet 0.5% Cr 15 Gm Tube) 1 appln TOP BID PRN PRN Reason: Rash Stop: 04/16/21 01:41
--- NOTE | 2021-03-18 12:58 | Neurology Consultation ---
Date of Consultation March 18, 2021 Assessment & Plan (1) Weakness: 1. PT/OT for discharge needs 2. may need home evaluation for living alone 3. MRI brain- with and without - r/o causes of falls and incontinence 4. folate, RPR, b12, thiamine - labs 5. further work up for memory as outpatient 6. needs home assessment for safety risks 7. correct infection or lyte abnormalities 8. follow with urology as scheduled for bladder issues will follow in our office in 4-6 weeks Bridget Foster PAC schedule (2) Fall: Supervising Physician Co-Signing Physician Notes I have seen and discussed above patient with Dr Bridget Monte, neurology. Patient seen and examined history reviewed, discussed with LACIE Mercedes. Patient has perhaps a greater than 1 year history of numbness in the feet with gradual gait dysfunction. Patient fell on the day of admission trying to get out of bed. Prior to that has not used an assistive device. He notes some occasional neck and back pain. No Lhermitte's phenomenon. Has urinary urgency. By report he has had a nerve conduction EMG with one of my partners which showed neuropathy. I do not know the extent of the work-up. He has no history of known diabetes. He does drink 3 glasses of wine per day. He had chemotherapy for myelodysplastic's syndrome in 2015. He denies a resting tremor. He indicates that he has had about a 25 pound weight loss which has bee n voluntary over the last 8 months. Cognitively he reports being intact. Exam he is awake and alert there is notable for decreased blink frequency. Mild bilateral pretibial edema. Normal extraocular motility facial symmetry. Strength in the uppers is full lowers the iliopsoas is about 3+ the quads about for the hamstrings about 4 the TA is more full. Reflexes are brisk at the uppers and at the knees there is crossed adductors ankle jerks are either absent or reduced there is no clonus and toes are downgoing. There is a fine tremor with intention but no resting tremor or cogwheel rigidity. [id number] is normal. Exam is notable for vibration present at the knees and the mid calf level to temperature. Patient's gait is mildly stooped mildly shuffling although not necessarily particularly narrow or wide-based. Romberg is positive. Patient appears to have multifactorial gait dysfunction. MRI of the brain shows some ventriculomegaly although his exam is not consistent with NPH nor is his clinical history. He has signs of a peripheral neuropathy and MCV is markedly elevated I am suspicious of B12 deficiency and of ordered some lab work. Labs for other treating out treatable etiologies of neuropathy were ordered as well. The patient also has some hyperreflexia which could be from B12 deficiency although could represent a compressive cervical myelopathy. MRI of the cervical spine ordered. There is some minor parkinsonian features but not convincing. At this point I would not place him on dopaminergic agents. He does have a mild essential tremor we did discuss that in a significant detail. I will review his outpatient evaluation for neuropathy. He may well need a follow-up nerve conduction EMG the patient should see urology if he has not done so. I agree that the patient needs some inpatient rehabilitation. We will follow with you. Bridget Monte MD History of Present Illness Reason for Consultation: fall, amb. dysfunction, shuffling, incontinence Requesting Physician: Lowell Field MD Attending Physician: Lowell Field MD History of Present Illness Trever is a 80 year old male with PMH- HLD, HTN, , varicose veins of the leg and venous insufficiency, gout arthropathy, neuropathy, myelodysplastic syndrome, anemia, relapsing polychondritis, history of squamous cell carcinoma, who lives alone, ambulates with a walker and to [facility] 03/18/2021 after a fall. He fell early in the morning at 3:00 a.m. and could not get up and he laid down on the floor for 3 hours and neighbor had to come and help him up to get in the bed. He was very shaky and again he fell at 3:00 p.m. and could not get up and he was not able to ambulate since. He has chronic back pain and is on prednisone. He had workup of MRI scan of the lumbar back and CT of the head, no acute findings. He has some swelling in the legs. His sister is in the room and states he seems at his baseline. He remembers the fall and tripped and lost his balance. He does jorge ve urinary incontinence but that has improved since admission. He does not walk with a walker at home. denies CP, SOB, abdominal pain, N, V, vision changes. Allergies Allergy/AdvReac Type Severity Reaction Status Date / Time codeine Allergy Mild bp Verified 04/25/19 06:24 increases guaifenesin Allergy Mild bp Verified 04/25/19 06:24 increases lactose Allergy Mild Gastrointestinal Verified 04/25/19 06:24 Upset tamsulosin Allergy Hives Unverified 03/16/21 19:12 Home Medications Medication Instructions Recorded Confirmed Type allopurinol 300 mg tablet 150 mg PO QAM 08/02/18 03/16/21 History atorvastatin 10 mg tablet 5 mg PO QAM 08/02/18 03/16/21 History carvedilol 3.125 mg tablet 3.125 mg PO BID 08/02/18 03/16/21 History cetirizine 10 mg tablet 10 mg PO DAILY PRN 08/02/18 03/16/21 History clobetasol 0.05 % topical cream 1 applic TOPICAL DAILY PRN 08/02/18 03/16/21 History fluticasone propionate 50 2 spray INTRANASAL DAILY PRN 08/02/18 03/16/21 History mcg/actuation nasal spray,suspension (Flonase Allergy Relief) lorazepam 0.5 mg tablet 0.5 mg PO BID PRN 08/02/18 03/16/21 History metronidazole 1 % topical cream 1 applic TOPICAL DAILY PRN 08/02/18 03/16/21 History jvjnhaiu-isn-qqmlc acid 300 1 tab PO QAM 08/02/18 03/16/21 History mcg-lycopene 600 mcg-lutein 300 mcg tablet (Centrum Silver Men) torsemide 5 mg tablet 5 mg PO QAM 08/02/18 03/16/21 History triamcinolone acetonide 0.5 % 1 applic TOPICAL BID PRN 08/02/18 03/16/21 History topical cream finasteride 5 mg tablet 5 mg PO DAILY 03/16/21 03/16/21 History losartan 50 mg tablet 50 mg PO DAILY 03/16/21 03/16/21 History prednisone 5 mg tablet 5 mg PO DAILY 03/16/21 03/16/21 History Patient History Medical History (Updated 03/16/21 @ 18:32 by Shorty Major MD) Anemia Anxiety Gout Hyperlipidemia Hypertension Myeloid dysplasia diagnosed 2014--remission for 2 years- CHEMO NO PORTS Osteoarthritis Sciatic leg pain left side Surgical History History of colonoscopy History of oral surgery X2 MANDIBULAR PILY History of tonsillectomy and adenoidectomy History of umbilical hernia repair Hx of left cataract extraction Hx of left inguinal hernia repair Hx of right inguinal hernia repair Social History Smoking Status: Never smoker Second Hand Exposure: No; Hx Alcohol Use: Yes Alcohol type: wine Hx Substance Use: No Preferred Language: Faroese Communication Ability: Effective Bean Viner Required: No Beliefs That Will Affect Care: None marital status: / Current Living Situation: Alone Current Living Situation Comment: pt is a Other Information That Helps Us Care for You: No Feels Safe at Home: Yes Safety Concerns: Feels Safe At This Time Assistive Devices: Walker Review of Systems Review of Systems: All systems reviewed & are unremarkable except as noted in HPI & below Physical Exam Physical Exam: Physical Exam: Constitutional appearance nourished, healthy and normal Ears, Nose, Mouth and Throat: mucous membranes moist, no injection and skin normal, eyes normal Cardiovascular: normal S-1 and S-2 and regular rate and rhythm Respiratory: course breath sounds Musculoskeletal: moderate peripheral edema and good distal pulses Skin: no stigmata of neurocutaneous disease noted and normal and intact Eyes: extraocular muscles intact (EOMI) and pupils equal, round and reactive to light (PERRL), decreased blink NEUROLOGIC EXAMINATION: Mental status: Alert and interactive [facility], president is russell, pen write with it , ring, thumb Oriented to person Speech fluent with no evidence of aphasia Cranial Nerves smile eye brow raise symmetric Reflexes: Deep tendon reflexes were symmetrical and graded 2/5. down going toes Sensory: light and cool touch intact Coordination: finger to nose no bi pass Gait/Stance: Posture normal. Gait normal: steady low amplitude steps, not wide based, squaring of corner Motor: Negative for pronator drift of out stretched arms with eyes closed. Strength: hand chorus master biceps triceps 5/5 bilaterally hip flex plantar flex ext Results & Data ([facility]) Vital Signs (Past 12 Hours) Vital Signs Temp Pulse Resp BP Pulse Ox 03/18/21 08:39 36.6 C 81 18 125/76 95 Diagnostic Findings CXR-Lung volumes are normal. Lungs are clear. There is no pneumothorax or pleural effusion. Cardiac size is normal. Mediastinal contours are normal. There is no evidence for pulmonary edema. MRI L spine- There is diffuse drop in bone marrow signal intensity on all sequences. This is nonspecific and could be seen with a marrow replacement process. Correlation with the clinical/medical history will be essential. No acute bony abnormality is seen involving the lumbar spine. There is no significant acquired compromise of the central canal. Mild spondylotic change as above. See discussion for detailed level by level analysis. The bladder is distended and shows evidence of chronic outlet obstruction. There is mild nonspecific presacral edema.
[2021-03-18] MEDS: GABAPENTIN 100 MG CAP PO SCH ×2 (18:06→21:00)
[2021-03-18] MEDS: CETIRIZINE HCL 10 MG TABLET PO PRN (20:59)
[2021-03-19 07:23] LABS: Estimated Average Glucose 105 mg/dl; Hemoglobin A1C 5.3 % (4.5-5.6)
[2021-03-19 07:29] LABS: BUN Creatinine Ratio 19.1 (10-20); Calcium 8.6 mg/dl (8.5-10.1); Creatinine Clr Calc Pharmacy 104.4 ml/min; Est GFR (African American) 108.7 ml/min; Est GFR (Non-African American) 93.8 ml/min; Magnesium 2.2 mg/dl (1.8-2.4); Potassium 3.4 mmol/L (3.5-5.1)
[2021-03-19 07:32] LABS: Phosphorus 3.7 mg/dl (2.5-4.9)
[2021-03-19 08:11] LABS: Folate (Folic Acid) > 20.00 ng/ml (>5.38); Vitamin B12 1066 pg/ml (193-986)
--- NOTE | 2021-03-19 08:22 | Magnetic Resonance Report ---
MRI OF THE CERVICAL SPINE WITHOUT IV CONTRAST CLINICAL HISTORY: Gait dysfunction. Hyperreflexia. COMPARISON STUDY: No priors. TECHNIQUE: MRI of the cervical spine is performed utilizing various T1 and T2 weighted sequences in t he axial and sagittal planes. IV contrast was not administered for this examination. FINDINGS: Cervical spine: Vertebral body height and alignment are maintained throughout the cervical spine. The re is mild hyperlordosis. Small anterior osteophytes are noted in the lower cervical region. The atla ntodental articulation is maintained. The spinous processes appear intact. No destructive bony lesion is seen. Chronic degenerative endplate change is seen at C6-C7. Intervertebral discs: Degenerative disc desiccation and loss of height is seen throughout the cervica l spine. Loss of height is moderate at C5-C6 and C6-C7. Spinal cord: The cervical spinal cord is normal in morphology and signal intensity. C2-C3: Unremarkable. C3-C4: Uncovertebral and facet arthropathy contribute to severe left-sided neural foraminal stenosis. The central canal and right neural foramina appear patent. C4-C5: A small posterior disc osteophyte complex abuts the ventral cord. Uncovertebral and facet arth ropathy contribute to severe left and rhey-ib-fpmaykir right neural foraminal stenosis. C5-C6: A posterior disc osteophyte complex effaces the ventral subarachnoid space. There is right lat eral disc bulge. In conjunction with uncovertebral and facet arthropathy this causes severe right-shannan ed neural foraminal stenosis and impinges on the exiting right C6 nerve root. Uncovertebral and facet arthropathy contribute to moderate to severe left-sided neural foraminal stenosis. C6-C7: A posterior disc osteophyte complex minimally effaces the ventral subarachnoid space. Uncovert ebral and facet arthropathy cause severe left and moderate to severe right neural foraminal stenosis. This likely impinges on the exiting left C7 nerve root. C7-T1: Unremarkable. Soft tissues: The prevertebral and paraspinous soft tissues are normal as visualized. Brain parenchyma: The visualized brain parenchyma at the skull base is within normal limits. IMPRESSION: 1. The cervical spinal cord is normal in morphology and signal intensity. 2. Multilevel cervical spondylosis as detailed above. See discussion for level by level analysis. 3. No destructive bony process is identified. Dictated: 03/19/2021 8:01 AM Transcribed: 03/19/2021 8:18 AM Ramonita [id number] [facility] Electronically signed by: Freddy Oviedo M.D. 03/19/2021 8:21 AM
[2021-03-19] MEDS ORDERED: POTASSIUM CHLORIDE CRTAB 20 MEQ TABCR PO STA (09:12)
--- NOTE | 2021-03-19 09:13 | Hospitalist Progress Note ---
Date of Service March 19, 2021 Assessment & Plan (1) Fall: (2) Back pain: (3) Weakness: Plan: This is a 80-year-old male who presents with a fall. 1. Fall and ambulatory dysfunction: There is some weakness in the lower extremities. MRI of lumbar spine and CT of the head without any acute findings. The patient does not want to get MRI of the head currently. PT, OT -obtained- recommend SNF/rehab, patient is not interested in SNF/rehab and wants to go home Patient's sister at the bedside, reports that patient was seen last time by her in November, and shuffles when he walks Patient also reports incontinence for some time On my evaluation, patient can hardly sit up from lying position in bed, or to turn on his side We will continue PT OT, will discuss further with neurology , ? NPH, ? 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 to observe in the medical floor. Per neurology - may have several reasons for weakness/ amb. dysfunction MRI cervical spine ordered B12, folic acid level B1 level ordered MCV elevated poss. B12 deficiency Also started on B12, thiamine, folic acid supplement 2. History of urinary incontinence: Going on for last 3 months, on Proscar. Follow up with urology. 3. Anemia: Hemoglobin of 11.2, seems to be stable. MCV elevated, likely B12 def. and folic acid def., levels pending started on supplement Follow up with pcp. 4. Lower extremity edema: History of venous insufficiency, on torsemide, which will be continued. Currently no significant edema noted on exam. 5. Chronic diastolic congestive heart failure: The patient had echo in November 2020 showing EF of 55% and grade 2 diastolic dysfunction. Continue his home diuretics and losartan. 6. History of chronic back pain: Relapsing polychondritis, on prednisone. 7. History of myelodysplastic syndrome: Anemia could be from the myelodysplastic syndrome. Follow up with PCP. DVT prophylaxis: Heparin subcutaneous. DISPOSITION: Closely monitor in the medical floor. PT/OT prior to discharge. Social service to help with discharge planning. Level 1 full code. Admission and Anticipated Discharge Date Admission Date: March 18, 2021 Subjective Patient seen in follow-up after falls, ambulatory dysfunction Currently sitting up in chair in no acute distress, says that he feels well Per PT evaluation, patient needs SNF/ rehab however he is not interested in SNF/ rehab Patient's sister visiting from [place] at the bedside and updated yesterday - trying to persuade the pt about the rehab, also setting up home helper for him Patient otherwise denies any chest pain, shortness of breath, fevers chills, or feeling sick at all prior to admission Reports incontinence going on for some time Per sister, she saw him last time in November, patient shuffles when walking Given amb. dysfunction, shuffling gait, incontinence and per pt hx of neuropathy, had further eval by neurology done as well Pt also drinks several glasses of wine a day Review of Systems Review of Systems: All systems reviewed & are unremarkable except as noted in Subjective Physical Exam Physical Exam: GENERAL: The patient is of moderate build, not in acute distress. HEENT: NC/A, EOMI, Pupils equal, round and reactive to light. Oral mucosa moist. NECK: No JVD, no neck masses. CARDIOVASCULAR: S1 and S2 heard, regular rate and rhythm. No murmur, no gallop. RESPIRATORY: Normal AP diameter. No accessory muscle use. No wheezing, no c rackles. ABDOMEN: Soft, bowel sounds present, nontender, no distention. NEURO: Alert and oriented. Speech is clear. No facial droop. Moves extremities. However generalized weakness and tony. LE weakness noticed EXTREMITIES: Mild bilateral lower extremity pedal edema present, no erythema seen. Results & Data Results & Data ([facility]) Vital Signs (Past 12 Hours) Vital Signs Temp Pulse Resp BP Pulse Ox 03/19/21 07:00 36.4 C L 75 20 103/63 95 03/19/21 00:07 36.6 C 62 18 123/73 94 Laboratory Results 03/19/21 03/19/21 03/19/21 Range/Units 06:23 06:23 06:23 WBC (4.8-10.8) K/uL RBC (4.7-6.1) M/uL Hgb (14.0-18.0) g/dL Hct (42-52) % MCV (80-100) fL MCH (25-34) pg MCHC (32-36) g/dL RDW Std Deviation (36.4-46.3) fL RDW Coeff of Otilia (11.5-14.5) % Plt Count (130-400) K/uL MPV (7.4-10.4) fL Sodium (136-145) mmol/L Potassium (3.5-5.1) mmol/L Chloride (98-107) mmol/L Carbon Dioxide (21-32) mmol/L Anion Gap (3-11) BUN (7-18) mg/dl Creatinine (0.6-1.4) mg/dl Est Cr Clr Drug Dosing ml/min Est GFR ( Amer) ml/min Est GFR (Non-Af Amer) ml/min BUN/Creatinine Ratio (10-20) Glucose (70-99) mg/dl Estimat Average Glucose mg/dl Hemoglobin A1c (4.5-5.6) % Calcium (8.5-10.1) mg/dl Phosphorus (2.5-4.9) mg/dl Magnesium (1.8-2.4) mg/dl Total Creatine Kinase (39-308) U/L Vitamin B1 Pending Vitamin B12 1066 H (193-986) pg/ml Methylmalonic Acid Pending Folate > 20.00 (>5.38) ng/ml RPR Pending 03/19/21 03/19/21 03/18/21 Range/Units 06:23 06:23 09:04 WBC (4.8-10.8) K/uL RBC (4.7-6.1) M/uL Hgb (14.0-18.0) g/dL Hct (42-52) % MCV (80-100) fL MCH (25-34) pg MCHC (32-36) g/dL RDW Std Deviation (36.4-46.3) fL RDW Coeff of Otilia (11.5-14.5) % Plt Count (130-400) K/uL MPV (7.4-10.4) fL Sodium 141 138 (136-145) mmol/L Potassium 3.4 L 3.2 L (3.5-5.1) mmol/L Chloride 107 103 (98-107) mmol/L Carbon Dioxide 28 26 (21-32) mmol/L Anion Gap 6.0 9.0 (3-11) BUN 12 12 D (7-18) mg/dl Creatinine 0.64 0.73 (0.6-1.4) mg/dl Est Cr Clr Drug Dosing 104.4 91.5 ml/min Est GFR ( Amer) 108.7 103.0 ml/min Est GFR (Non-Af Amer) 93.8 88.8 ml/min BUN/Creatinine Ratio 19.1 15.8 (10-20) Glucose 94 140 H (70-99) mg/dl Estimat Average Glucose 105 mg/dl Hemoglobin A1c 5.3 (4.5-5.6) % Calcium 8.6 9.1 (8.5-10.1) mg/dl Phosphorus 3.7 3.2 (2.5-4.9) mg/dl Magnesium 2.2 1.8 (1.8-2.4) mg/dl Total Creatine Kinase 27 L (39-308) U/L Vitamin B1 Vitamin B12 (193-986) pg/ml Methylmalonic Acid Folate (>5.38) ng/ml RPR 03/18/21 Range/Units 09:04 WBC 4.03 L (4.8-10.8) K/uL RBC 2.88 L (4.7-6.1) M/uL Hgb 10.9 L (14.0-18.0) g/dL Hct 31.9 L (42-52) % MCV 110.8 H (80-100) fL MCH 37.8 H (25-34) pg MCHC 34.2 (32-36) g/dL RDW Std Deviation 54.5 H (36.4-46.3) fL RDW Coeff of Otilia 13.6 (11.5-14.5) % Plt Count 102 L (130-400) K/uL MPV 9.6 (7.4-10.4) fL Sodium (136-145) mmol/L Potassium (3.5-5.1) mmol/L Chloride (98-107) mmol/L Carbon Dioxide (21-32) mmol/L Anion Gap (3-11) BUN (7-18) mg/dl Creatinine (0.6-1.4) mg/dl Est Cr Clr Drug Dosing ml/min Est GFR ( Amer) ml/min Est GFR (Non-Af Amer) ml/min BUN/Creatinine Ratio (10-20) Glucose (70-99) mg/dl Estimat Average Glucose mg/dl Hemoglobin A1c (4.5-5.6) % Calcium (8.5-10.1) mg/dl Phosphorus (2.5-4.9) mg/dl Magnesium (1.8-2.4) mg/dl Total Creatine Kinase (39-308) U/L Vitamin B1 Vitamin B12 (193-986) pg/ml Methylmalonic Acid Folate (>5.38) ng/ml RPR Medications Administered Current Inpatient Medications Acetaminophen (Acetaminophen 325 Mg Tab) 650 mg PO Q4H PRN PRN Reason: pain/fever Stop: 04/16/21 01:41 Allopurinol (Allopurinol 300 Mg Tab) 150 mg PO QAM [facility] Stop: 04/16/21 08:59 Last Admin: 03/18/21 09:01 Dose: 150 mg Documented by: Atorvastatin Calcium (Atorvastatin 10 Mg Tab) 5 mg PO QAM [facility] Stop: 04/16/21 08:59 Last Admin: 03/18/21 09:01 Dose: 5 mg Documented by: Carvedilol (Carvedilol 3.125 Mg Tab) 3.125 mg PO BID [facility] Stop: 04/16/21 08:59 Last Admin: 03/18/21 20:59 Dose: 3.125 mg Documented by: Cetirizine HCl (Cetirizine Hcl 10 Mg Tablet) 10 mg PO DAILY PRN PRN Reason: Allergy Symptoms Stop: 04/16/21 01:41 Last Admin: 03/18/21 20:59 Dose: 10 mg Documented by: Clobetasol Propionate (Clobetasol Propionate 0.05% Oint 15 Gm Tube) 1 appln EXT DAILY PRN PRN Reason: Rash Stop: 04/16/21 02:05 Cyanocobalamin (Cyanocobalamin 500 Mcg Tablet (Vitamin B-12)) 1,000 mcg PO QAM [facility] Stop: 04/17/21 08:59 Last Admin: 03/18/21 09:01 Dose: 1,000 mcg Documented by: Finasteride (Finasteride 5 Mg Tab) 5 mg PO DAILY [facility] Stop: 04/16/21 08:59 Last Admin: 03/18/21 08:59 Dose: Not Given Documented by: Fluticasone Propionate (Fluticasone Propionate Na Spr 16 Gm Btl) 2 sprays NA DAILY PRN PRN Reason: Allergy Symptoms Stop: 04/16/21 01:41 Folic Acid (Folic Acid 1 Mg Tab) 1 mg PO QAM [facility] Stop: 04/17/21 08:59 Last Admin: 03/18/21 09:00 Dose: 1 mg Documented by: Gabapentin (Gabapentin 100 Mg Cap) 200 mg PO TID [facility] Stop: 04/17/21 16:49 Last Admin: 03/18/21 21:00 Dose: Not Given Documented by: Heparin Sodium (Porcine) (Heparin Sod 5,000 Unit/0.5 Ml Vial) 5,000 units SQ Q12 [id number] Stop: 04/16/21 08:59 Last Admin: 03/18/21 21:00 Dose: Not Given Documented by: Lorazepam (Lorazepam 0.5 Mg Tab) 0.5 mg PO BID PRN PRN Reason: Anxiety Stop: 04/16/21 01:41 Losartan Potassium (Losartan Potassium 50 Mg Tab) 50 mg PO DAILY [facility] Stop: 04/16/21 08:59 Last Admin: 03/18/21 09:00 Dose: 50 mg Documented by: Miscellaneous (Metrocream~Order Awaiting Action) 1 ea N/A QS [facility] Stop: 04/16/21 07:59 Last Admin: 03/19/21 07:54 Dose: Not Given Documented by: Multivitamins/Minerals (Cerovite Adv Formula Tab) 1 tab PO QAM [facility] Stop: 04/16/21 08:59 Last Admin: 03/18/21 09:00 Dose: 1 tab Documented by: Ondansetron HCl (Ondansetron Inj 2 Mg/Ml 2 Ml Vial) 4 mg IV Q6H PRN PRN Reason: Nausea Stop: 04/16/21 01:41 Polyethylene Glycol (Polyethylene (Miralax) 17 Gm Pack) 17 gm PO DAILY PRN PRN Reason: Constipation Stop: 04/16/21 01:41 Potassium Chloride (Potassium Chloride Crtab 20 Meq Tabcr) 40 meq PO NOW STA Stop: 03/19/21 09:13 Prednisone (Prednisone 5 Mg Tab) 5 mg PO DAILY [facility] Stop: 04/16/21 08:59 Last Admin: 03/18/21 09:00 Dose: 5 mg Documented by: Thiamine HCl (Thiamine Hcl 100 Mg Tab) 100 mg PO QAM [facility] Stop: 04/17/21 08:59 Last Admin: 03/18/21 09:00 Dose: 100 mg Documented by: Torsemide (Torsemide 10 Mg Tab) 5 mg PO QAM [facility] Stop: 04/16/21 08:59 Last Admin: 03/18/21 09:00 Dose: 5 mg Documented by: Triamcinolone Acetonide (Triamcinolone Acet 0.5% Cr 15 Gm Tube) 1 appln TOP BID PRN PRN Reason: Rash Stop: 04/16/21 01:41
[2021-03-19] MEDS: HEPARIN SOD 5,000 UNIT/0.5 ML VIAL SQ SCH (09:23)
[2021-03-19] MEDS: GABAPENTIN 100 MG CAP PO SCH ×2 (09:23→12:56)
[2021-03-19] MEDS: LOSARTAN POTASSIUM 50 MG TAB PO SCH (09:30)
[2021-03-19] MEDS: THIAMINE HCL 100 MG TAB PO SCH (09:30)
[2021-03-19] MEDS: carvediloL 3.125 MG TAB PO SCH (09:30)
[2021-03-19] MEDS: CYANOCOBALAMIN 500 MCG TABLET (VITAMIN B-12) PO SCH (09:30)
[2021-03-19] MEDS: CEROVITE ADV FORMULA TAB PO SCH (09:30)
[2021-03-19] MEDS: FINASTERIDE 5 MG TAB PO SCH (09:31)
[2021-03-19] MEDS: allopurinoL 300 MG TAB PO SCH (09:31)
[2021-03-19] MEDS: predniSONE 5 MG TAB PO SCH (09:31)
[2021-03-19] MEDS: ATORVASTATIN 10 MG TAB PO SCH (09:31)
[2021-03-19] MEDS: TORSEMIDE 10 MG TAB PO SCH (09:31)
[2021-03-19] MEDS: FOLIC ACID 1 MG TAB PO SCH (09:31)
--- NOTE | 2021-03-19 12:36 | Neurology Progress Note ---
Date of Service March 19, 2021 Assessment & Plan (1) Weakness: Plan: 1. PT/OT for discharge needs 2. may need home evaluation for living alone 3. MRI brain- with and without - r/o causes of falls and incontinence- can complete as outpatient 4. folate, RPR, b12, thiamine - labs 5. further work up for memory as outpatient 6. needs home assessment for safety risks 7. correct infection or lyte abnormalities 8. follow with urology as scheduled for bladder issues will follow in our office in 4-6 weeks Bridget Foster PAC schedule (2) Fall: Admission and Anticipated Discharge Date Admission Date: March 18, 2021 Supervising Physician Co-Signing Physician Notes I have seen and discussed above patient with Dr Bridget Monte, neurology. Patient seen and examined. MRI of the cervical spine shows no evidence of compressive cervical myelopathy. B12 level is normal although patient received B12 on admission before level was checked Patient's gait today is mildly narrow based and minimally shuffling but not consistent with normal pressure hydrocephalus Impression gait dysfunction likely related to relatively severe peripheral neuropathy. Patient has not had a nerve conduction EMG in our system I recommended that he schedule an outpatient with follow-up with 1 of us nerve conduction further evaluation for etiology of neuropathy will take place at that time based on the electrical findings the patient has mild parkinsonian features only including decreased blink frequency and a mildly narrow based gait will need to assess as an outpatient. Will sign off Subjective Trever is a 80 year old male with PMH- HLD, HTN, , varicose veins of the leg and ve nous insufficiency, gout arthropathy, neuropathy, myelodysplastic syndrome, anemia, relapsing polychondritis, history of squamous cell carcinoma, who lives alone, ambulates with a walker and to [facility] 03/18/2021 after a fall. He fell early in the morning at 3:00 a.m. and could not get up and he laid down on the floor for 3 hours and neighbor had to come and help him up to get in the bed. He was very shaky and again he fell at 3:00 p.m. and could not get up and he was not able to ambulate since. He has chronic back pain and is on prednisone. He had workup of MRI scan of the lumbar back and CT of the head, no acute findings. He has some swelling in the legs. His sister is in the room and states he seems at his baseline. He remembers the fall and tripped and lost his balance. He does have urinary incontinence but that has improved since admission. He does not walk with a walker at home. denies CP, SOB, abdominal pain, N, V, vision changes. Review of Systems Review of Systems: All systems reviewed & are unremarkable except as noted in HPI & below Physical Exam Physical Exam: Physical Exam: Constitutional appearance nourished, healthy and normal Ears, Nose, Mouth and Throat: mucous membranes moist, no injection and skin nor mal, eyes normal Cardiovascular: normal S-1 and S-2 and regular rate and rhythm Respiratory: course breath sounds Musculoskeletal: moderate peripheral edema and good distal pulses Skin: no stigmata of neurocutaneous disease noted and normal and intact Eyes: extraocular muscles intact (EOMI) and pupils equal, round and reactive to light (PERRL), decreased blink NEUROLOGIC EXAMINATION: Mental status: Alert and interactive Oriented [facility] 2020, president is russell, pen write with it , ring, thumb Oriented to person Speech fluent with no evidence of aphasia Cranial Nerves smile eye brow raise symmetric Reflexes: Deep tendon reflexes were symmetrical and graded 2/5. down going toes Sensory: light and cool touch intact Coordination: finger to nose no bi pass Gait/Stance: Posture normal. Gait normal: steady low amplitude steps, not wide based, squaring of corner Motor: Negative for pronator drift of out stretched arms with eyes closed. Strength: hand rug measurer biceps triceps 5/5 bilaterally hip flex plantar flex ext Results & Data ([facility]) Vital Signs (Past 12 Hours) Vital Signs Temp Pulse Resp BP Pulse Ox 03/19/21 07:00 36.4 C L 75 20 103/63 95 Laboratory Results Abnormal lab results 03/19/21 03/19/21 Range/Units 06:23 06:23 Potassium 3.4 L (3.5-5.1) mmol/L Total Creatine Kinase 27 L (39-308) U/L Vitamin B12 1066 H (193-986) pg/ml Diagnostic Findings MRI c spine-The cervical spinal cord is normal in morphology and signal intensity. Multilevel cervical spondylosis as detailed above. See discussion for level by level analysis. . No destructive bony process is identified.
--- NOTE | 2021-03-19 15:37 | Discharge Summary ---
Date of Service March 19, 2021 Admission HPI Per Admitting Provider This is a 80-year-old male with past medical history significant for hyperlipidemia, hypertension, varicose veins of the leg and venous insufficiency, gout arthropathy, neuropathy, myelodysplastic syndrome, anemia, relapsing polychondritis, history of squamous cell carcinoma, who lives alone, ambulates with a walker, presents with a fall. The patient says he fell early in the morning at 3:00 a.m. and could not get up and he laid down on the floor for 3 hours and neighbor had to come and help him up to get in the bed. After that, he walked a little bit, but he was very shaky and again he fell at 3:00 p.m. and could not get up and he was not able to ambulate since then, that is the reason he came here. He has chronic back pain. He is on prednisone. The back pain is okay now. He had workup of MRI scan of the lumbar back and CT of the head, no acute findings. The patient is currently resting comfortably and hemodynamically stable. Denies any headache, no dizziness. Some lightheadedness. Denies any blurred vision, double vision, no earache, no runny nose, no sore throat, no cough. Appetite is okay. No dysphagia, no chest pain, no shortness of breath, no nausea, no abdominal pain. He is somewhat constipated. Once in a while he gets blood in the stool and he has urinary incontinence going on for the last 3 months, following with [facility]. Denies any hematuria. He has some swelling in the legs. Admission Exam Per Admitting Provider GENERAL: The patient is of moderate build, not in acute distress. VITAL SIGNS: Temperature 36.6, pulse 89, respiratory rate 27, blood pressure 113/73, oxygen 98% on room air. HEENT: Pupils equal, round and reactive to light. Oral mucosa moist. NECK: No JVD, no neck masses. CARDIOVASCULAR: S1 and S2 heard, regular rate and rhythm. No murmur, no gallop. RESPIRATORY SYSTEM: Normal AP diameter. No accessory muscle use. No wheezing, no crackles. ABDOMEN: Soft, bowel sounds present, nontender, no distention. CENTRAL NERVOUS SYSTEM: Alert and oriented. Speech is clear. No facial droop. Insight is good. Moves extremities, some weakness in the lower extremities seen. EXTREMITIES: Mild bilateral lower extremity pedal edema present, no erythema seen. Principal Diagnosis Fall Ambulatory dysfunction Discharge Exam GENERAL: The patient is of moderate build, not in acute distress. HEENT: NC/A, EOMI, Pupils equal, round and reactive to light. Oral mucosa moist. NECK: No JVD, no neck masses. CARDIOVASCULAR: S1 and S2 heard, regular rate and rhythm. No murmur, no gallop. RESPIRATORY: Normal AP diameter. No accessory muscle use. No wheezing, no crackles. ABDOMEN: Soft, bowel sounds present, nontender, no distention. NEURO: Alert and oriented. Speech is clear. No facial droop. Moves extremities. However generalized weakness and tony. LE weakness noticed EXTREMITIES: Mild bilateral lower extremity pedal edema present, no erythema seen. Discharge Data Allergies Allergy/AdvReac Type Severity Reaction Status Date / Time codeine Allergy Mild bp Verified 04/25/19 06:24 increases guaifenesin Allergy Mild bp Verified 04/25/19 06:24 increases lactose Allergy Mild Gastrointestinal Verified 04/25/19 06:24 Upset tamsulosin Allergy Hives Unverified 03/16/21 19:12 Consultations 03/16/21 22:36 ED Decision to Admit Stat 03/18/21 08:41 Consult Neurology Routine Ordered Studies 03/16/21 17:52 MR lumbar spine wo con Urgent 03/16/21 21:27 CT head/brain wo con Stat 03/19/21 04:45 MR cervical spine wo con Routine Hospital Course (1) Fall: (2) Back pain: (3) Weakness: This is a 80-year-old male who presents with a fall. 1. Fall and ambulatory dysfunction: There is some weakness in the lower extremities. MRI of lumbar spine and CT of the head without any acute findings. The patient does not want to get MRI of the head currently. PT, OT -obtained- recommend SNF/rehab, patient is not interested in SNF/rehab and wants to go home Patient's sister at the bedside, reports that patient was seen last time by her in November, and shuffles when he walks Patient also reports incontinence for some time On my evaluation, patient can hardly sit up from lying position in bed, or to turn on his side We will continue PT OT, will discuss further with neurology , ? NPH, ? 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 to observe in the medical floor. Per neurology - may have several reasons for weakness/ amb. dysfunction MRI cervical spine ordered - 1. The cervical spinal cord is normal in morphology and signal intensity. 2. Multilevel cervical spondylosis as detailed above. See discussion for level by level analysis. 3. No destructive bony process is identified. B12, folic acid level B1 level, RPR, methylmalonic acid level ordered - pending MCV elevated poss. B12 deficiency Also started on B12, thiamine, folic acid supplement 2. History of urinary incontinence: Going on for last 3 months, on Proscar. Follow up with urology. 3. Anemia: Hemoglobin of 11.2, seems to be stable. MCV elevated, likely B12 def. and folic acid def., levels pending started on supplement Follow up with pcp. 4. Lower extremity edema: History of venous insufficiency, on torsemide, which will be continued. Currently no significant edema noted on exam. 5. Chronic diastolic congestive heart failure: The patient had echo in November 2020 showing EF of 55% and grade 2 diastolic dysf unction. Continue his home diuretics and losartan. 6. History of chronic back pain: Relapsing polychondritis, on prednisone. 7. History of myelodysplastic syndrome: Anemia could be from the mye lodysplastic syndrome. Follow up with PCP. DVT prophylaxis: Heparin subcutaneous. DISPOSITION: Discussed in detail with the patient and his sister, as well as the case packer. Patient will be discharged with home health, as he is not interested in SNF or rehab. Patient's sister also arranged home helper, which will start tomorrow at 7 AM. Patient's sister, Jossy, is currently at the [facility] and will be taking patient home after discharge. Home Health Attestation I certify that this patient is under my care and that I, or a physicians paraprofessional education assistant working with me, had a face to-face encounter that meets the home health [id number] encounter requirements with this patient. The encounter with the patient was in whole, or in part, for the following medical condition, which is the primary reason for home health care (list medical condition): Fall,CHF I certify that, based on my findings, the following services are medically necessary home health services: My clinical findings support the need for the above services because: OT Assess ADL Status and Restore Function w ADLs PT Gait and Balance Training, Strengthening and Safety Further, I certify that my clinical findings support that this patient is homebound (i.e. absences from home require considerable and taxing effort and are for medical reasons or confucianism services or infrequently or of short duration when for other reasons) because: Transportation Assistance/Unable to Leave Home Unassisted Certification for Home Health Services: Based on the above findings, I certify that this patient is confined to the home and needs intermittent fci care, physical therapy and/or speech therapy or continues to need occupational therapy. The patient is under my care, and I have initiated the establishment of the plan of care. This patient will be followed by a physician who will periodically review the plan of care. Total Time Total Time Spent Total Time Spent (In Minutes): 40 Discharge Plan Discharge Items Patient Disposition: Home - Home Health Services Reason For Visit: FALL Discharge Diagnosis: Fall Ambulatory dysfunction Activity: Per Instructions section Non-emergency contact: Primary Care Provider Call non-emergency contact if: you have any medication questions and your symptoms worsen Follow-up/Referrals: Tian Harrington DO [Primary Care Provider] - (Date & Time 03/26/2021 11:20 AM Provider Tian Harrington DO Department General Internal Medicine [facility] ) Diet: Regular Addtl Attending Provider Instructions: Follow-up with your primary care doctor, the appointment was scheduled for you for March 26. You will also need to follow-up with neurology, you will be contacted about the appointment. In the meantime recommend to take vitamin supplements such as folic acid, thiamine, vitamin B12. There is still some blood work pending, results will be available at your appointments with your healthcare providers. Pending Studies at Discharge: Yes Studies:: RPR, B1 level, B12 level, RPR, methylmalonic acid level, Anaplasma PCR Stand-Alone Forms: [employer], Smoking Cessation Medications and DC Order Prescriptions: New cyanocobalamin (vitamin B-12) 500 mcg Tablet 1,000 mcg PO QAM Qty: 30 RF: 0 folic acid 1 mg Tablet 1 mg PO QAM Qty: 30 RF: 0 thiamine HCl (vitamin B1) [Vitamin B-1] 100 mg Tablet 100 mg PO QAM Qty: 30 RF: 0 Continued atorvastatin 10 mg Tablet 5 mg PO QAM RF: 0 torsemide 5 mg Tablet 5 mg PO QAM RF: 0 triamcinolone acetonide 0.5 % Cream 1 applic TOPICAL BID PRN (Reason: Rash) RF: 0 cetirizine 10 mg Tablet 10 mg PO DAILY PRN (Reason: Allergy Symptoms) RF: 0 clobetasol 0.05 % Cream 1 applic TOPICAL DAILY PRN (Reason: Rash) RF: 0 carvedilol 3.125 mg Tablet 3.125 mg PO BID RF: 0 lorazepam 0.5 mg Tablet 0.5 mg PO BID PRN (Reason: Anxiety) RF: 0 allopurinol 300 mg Tablet 150 mg PO QAM RF: 0 fluticasone propionate [Flonase Allergy Relief] 50 mcg/actuation [place],Suspension 2 spray INTRANASAL DAILY PRN (Reason: Allergy Symptoms) RF: 0 metronidazole 1 % Cream 1 applic TOPICAL DAILY PRN (Reason: Rash) RF: 0 Centrum Silver Men 300-600-300 mcg Tablet 1 tab PO QAM RF: 0 finasteride 5 mg tablet 5 mg PO DAILY RF: 0 losartan 50 mg tablet 50 mg PO DAILY RF: 0 prednisone 5 mg tablet 5 mg PO DAILY RF: 0 Discharge Orders: Discharge Order (Routine); Ordered 03/19/21 Ordered By: Lowell Field Admission Data Admit Date/Time: 03/18/21 09:07 Attending Provider: Lowell Field Admit Provider: Demond Knapp Primary Care Provider: Tian Harrington Other Providers: Demond Knapp ; [facility] ; Bridget Monte
--- NOTE | 2021-03-20 09:22 | Electrocardiogram Report ---
Test Reason : Blood Pressure : / mmHG Vent. Rate : 070 BPM Atrial Rate : 070 BPM P-R Int : 202 ms QRS Dur : 096 ms QT Int : 450 ms P-R-T Axes : 074 -05 020 degrees QTc Int : 486 ms Normal sinus rhythm with sinus arrhythmia Nonspecific ST abnormality Prolonged QT Abnormal ECG No previous ECGs available Confirmed by Ej Mcgowan ([id number]) on 03/20/2021 9:21:44 AM Referred By: REFERRED SELF Confirmed By:Ej Mcgowan
[2021-03-23 06:31] LABS: Methylmalonic Acid 81 nmol/L (87-318)
== END 2021-03-19 16:56 | disposition home health service (06) ==
LOC: 3W 16:11 → ED 16:11 → 3W 03-17 01:39

== ENCOUNTER 2021-03-25 16:40 | Observation (INO) ==
[2021-03-25 17:34] LABS: Basophils # (auto) 0.02 K/uL (0-0.2); Basophils % (auto) 0.2 %; Eosinophils # (auto) 0.01 K/uL (0-0.5); Eosinophils % (auto) 0.1 %; Hematocrit (blood only) 30.8 % (42-52); Hemoglobin 10.4 g/dL (14.0-18.0); Immature Granulocytes # (auto) 0.04 K/uL (0.00-0.02); Immature Granulocytes % (auto) 0.4 %; Lymphocytes # (auto) 1.31 K/uL (1.2-3.4); Lymphocytes % (auto) 13.5 %; Mean Corpuscular Hemoglobin 37.8 pg (25-34); Mean Corpuscular Hgb Conc 33.8 g/dL (32-36); Mean Platelet Volume 10.3 fL (7.4-10.4); Monocytes # (auto) 1.45 K/uL (0.11-0.59); Monocytes % (auto) 14.9 %; Neutrophils % (auto) 70.9 %; Platelet Count 182 K/uL (130-400); RDW Standard Deviation 53.3 fL (36.4-46.3); Red Blood Count 2.75 M/uL (4.7-6.1); White Blood Count 9.73 K/uL (4.8-10.8)
--- NOTE | 2021-03-25 17:37 | Emergency Department Note ---
Impression & Plan Fall, Ambulatory dysfunction, Arrhythmia ED Provider Note Provider: Vladimir Mead MD DATE OF SERVICE: 03/25/2021 CHIEF COMPLAINT: Fall HISTORY OF PRESENT ILLNESS: Patient is a 80-year-old gentleman past medical history including hypertension, gout, myelodysplastic syndrome, anemia presentin g the ambulance today after a fall at home. Patient states around 2 AM he was on the edge of his bed and slid off the bed onto the ground beside of his bed. States that he twisted when he went down and his head got stuck between the bed and a nightstand. He laid there for approximately 4 hours until he could get to a phone to call for help from a neighbor. Patient denies significantly falling or striking his head. Denies any headache, dizziness, or visual change. Reports a little bit of stiffness in his neck but denies any new numbness or tingling in the extremities. Denies difficulty breathing or chest pain. Denies abdominal pain or nausea. Patient reports some chronic lower back pain but states again this is not significantly changed. Patient states his neighbor this morning was able to get him up and back into bed. Was later after sleeping for several hours able to be assisted up and required a significant amount of assistance he reports. Did not take anything for pain prior to arrival denies pain medicine now. Patient states that he does not feel that he is in a place to be home right now in his current condition and believe he needs rehab at this time. Was recently admitted here several days ago for ambulatory dysfunction. No LOC reported. No significant anticoagulants noted. REVIEW OF SYSTEMS: A total of 10 review of systems was obtained and negative except as stated above in the HPI. PAST MEDICAL HISTORY: As noted above MEDICATIONS: Reviewed home medication list SOCIAL HISTORY: Lives at home by himself PHYSICAL EXAM: GENERAL: alert and oriented in no acute distress on stretcher Head: normocephalic and atraumatic EYES: No injection, discharge or icterus. NECK: Trachea midline. Supple with some mild right-sided neck tenderness. LUNGS: Airway patent. No retractions. Breath sounds clear HEART: Regular rate and rhythm. No chest wall tenderness ABDOMEN: Soft and non-tender, without guarding or rebound. SKIN: Acyanotic, warm, dry, without rashes EXTREMITIES: Without swelling, tenderness or deformity NEUROLOGICAL: No focal deficits. No aphasia. No facial droop or slurred speech. Normal strength and tone in the extremities. Sensation to gross touch normal. EK bpm believe this represents sinus rhythm with PAC. No acute ST segment elevation or depression is noted. QTc 470. Compared to previous from March 16 with it appears to be versus atrial fibrillation CONTINUOUS CARDIAC MONITORING: was ordered and showed a heart rate of 70s to 90s bpm in sinus rhythm with PACs sinus rhythm with episodes of atrial fibrillation GCS 15. Patient's laboratory studies and imaging reviewed. Differential includes Infection, dehydration, metabolic abnormality, hypo/hyperglycemia, electrolyte disturbance, anemia, hypoxia, cardiac sources, intracerebral event, toxicologic, neurologic, as well as other pathologies. IMPRESSION/MEDICAL DECISION MAKING: Patient presents after a fall last night. Was on the floor for several hours. Denies significant traumatic injury but did get his head stuck between the bed and the nightstand and does complain of little bit of stiffness in the neck otherwise. No acute neurological deficits appreciated. No significant midline tenderness. Not on significant coagulation. Given that his head got stuck and he has little bit of lateral right neck pain a CT of the head and cervical spine are completed given his age and medical history. Chest x-ray and pelvis x-ray obtained but he has benign abdomen and does not complain of significant abdominal tenderness or chest tenderness. I doubt significant traumatic injury from a slide to the floor like this. Do question his ability to go home at this time given his generalized weakness. Was evaluated in hospital recently for similar. Basic blood work was obtained. Discussed with case management the likely need for rehab placement. Blood work without significant acute abnormality with stable mild anemia. EKG questions atrial fibrillation which I believe is a new process for this patient. Does states in the past he has had some brief arrhythmias but not A. fib and states he is really been very short-lived. On telemetry here the very short episodes of PACs versus brief episodes of A. fib. Will defer anticoagulation this time given his multiple falls and age to the inpatient team. Not in RVR in any event. Further cardiac monitor technician can be pursued here. Given the patient's weakness and ambulatory dysfunction will likely need placement to be further monitored on telemetry for any cardiac arrhythmias. Patient was agreed with thi s plan. Hospitalist was contacted. DIAGNOSIS: Fall, ambulatory dysfunction, arrhythmia DISPOSITION: Hospitalist will evaluate Patient was agreeable with this plan. Past Med/Surg History Medical History (Updated 03/25/21 @ 23:01 by Bartolome Garcia MD) Anemia Anxiety Gout Hyperlipidemia Hypertension Myeloid dysplasia diagnosed 2015--remission for 2 years- CHEMO NO PORTS Osteoarthritis Sciatic leg pain left side Surgical History History of colonoscopy History of oral surgery X2 MANDIBULAR PILY History of tonsillectomy and adenoidectomy History of umbilical hernia repair Hx of left cataract extraction Hx of left inguinal hernia repair Hx of right inguinal hernia repair Social History Smoking Status: Former smoker Second Hand Exposure: No; Do You Dip or Chew Tobacco: No; Hx Alcohol Use: Yes Alcohol type: wine Hx Substance Use: No Preferred Language: Trinidadian Communication Ability: Effective Drafting Instructor Required: No Beliefs That Will Affect Care: None marital status: / Current Living Situation: Alone Current Living Situation Comment: pt is a Other Information That Helps Us Care for You: No Feels Safe at Home: Yes Safety Concerns: Feels Safe At This Time Assistive Devices: Glasses and Walker Allergies Allergies Allergy/AdvReac Type Severity Reaction Status Date / Time codeine Allergy Mild bp Verified 03/25/21 17:22 increases guaifenesin Allergy Mild bp Verified 03/25/21 17:22 increases lactose Allergy Mild Gastrointestinal Verified 03/25/21 17:22 Upset tamsulosin Allergy Hives Unverified 03/25/21 17:22 Home Meds Home Medications Medication Instructions Recorded Confirmed allopurinol 300 mg tablet 150 mg PO QAM 08/02/18 03/25/21 atorvastatin 10 mg tablet 5 mg PO QAM 08/02/18 03/25/21 carvedilol 3.125 mg tablet 3.125 mg PO BID 08/02/18 03/25/21 cetirizine 10 mg tablet 10 mg PO DAILY PRN 08/02/18 03/25/21 clobetasol 0.05 % topical cream 1 applic TOPICAL DAILY PRN 08/02/18 03/25/21 fluticasone propionate 50 2 spray INTRANASAL DAILY PRN 08/02/18 03/25/21 mcg/actuation nasal spray,suspension (Flonase Allergy Relief) lorazepam 0.5 mg tablet 0.5 mg PO BID PRN 08/02/18 03/25/21 metronidazole 1 % topical cream 1 applic TOPICAL DAILY PRN 08/02/18 03/25/21 ovthobkv-[id number]-[id number] acid 300 1 tab PO QAM 08/02/18 03/25/21 mcg-lycopene 600 mcg-lutein 300 mcg tablet (Centrum Silver Men) torsemide 5 mg tablet 5 mg PO QAM 08/02/18 03/25/21 triamcinolone acetonide 0.5 % 1 applic TOPICAL BID PRN 08/02/18 03/25/21 topical cream losartan 50 mg tablet 50 mg PO DAILY 03/16/21 03/25/21 prednisone 5 mg tablet 5 mg PO DAILY 03/16/21 03/25/21 Previous Rx's Medication Instructions Recorded cyanocobalamin (vitamin B-12) 500 1,000 mcg PO QAM #30 tab 03/19/21 mcg tablet folic acid 1 mg tablet 1 mg PO QAM #30 tab 03/19/21 thiamine HCl (vitamin B1) 100 mg 100 mg PO QAM #30 tab 03/19/21 tablet (Vitamin B-1) Results & Data (ED) Vital Signs Vital Signs - 24 hr 03/25/21 16:55 03/25/21 17:39 03/25/21 17:54 Temperature 36.7 C Temperature Source Oral Pulse Rate 85 71 Pulse Rate [Radial] Respiratory Rate 16 16 Blood Pressure 92/59 L Blood Pressure [Left Arm] Blood Pressure Mean 70 Blood Pressure Mean [Left Arm] Pulse Oximetry 97 96 97 Oxygen Delivery Method Room Air Room Air Room Air Oxygen Flow Rate 0 Sepsis Recent Fever Within 48 Hours No Sepsis New/Unexplained Change in Mental Status No Sepsis Action Taken by Nursing No Action Required 03/25/21 18:30 03/25/21 20:08 Temperature Temperature Source Pulse Rate Pulse Rate [Radial] 77 68 Respiratory Rate 16 16 Blood Pressure Blood Pressure [Left Arm] 115/56 L 111/62 Blood Pressure Mean Blood Pressure Mean [Left Arm] 75 78 Pulse Oximetry 99 98 Oxygen Delivery Method Room Air Room Air Oxygen Flow Rate Sepsis Recent Fever Within 48 Hours Sepsis New/Unexplained Change in Mental Status Sepsis Action Taken by Nursing Laboratory Data Result diagrams: 03/25/21 17:08 03/25/21 17:08 Lab Results 03/25/21 03/25/21 03/25/21 Range/Units 17:08 17:08 17:39 WBC 9.73 (4.8-10.8) K/uL RBC 2.75 L (4.7-6.1) M/uL Hgb 10.4 L (14.0-18.0) g/dL Hct 30.8 L (42-52) % MCV 112.0 H (80-100) fL MCH 37.8 H (25-34) pg MCHC 33.8 (32-36) g/dL RDW Std Deviation 53.3 H (36.4-46.3) fL RDW Coeff of Otilia 13.0 (11.5-14.5) % Plt Count 182 (130-400) K/uL MPV 10.3 (7.4-10.4) fL Immature Gran % (Auto) 0.4 % Neut % (Auto) 70.9 % Lymph % (Auto) 13.5 % [place] % (Auto) 14.9 % Eos % (Auto) 0.1 % Baso % (Auto) 0.2 % Neut # (Auto) 6.90 H (1.4-6.5) K/uL Lymph # (Auto) 1.31 (1.2-3.4) K/uL [place] # (Auto) 1.45 H (0.11-0.59) K/uL Eos # (Auto) 0.01 (0-0.5) K/uL Baso # (Auto) 0.02 (0-0.2) K/uL Immature Gran # (Auto) 0.04 H (0.00-0.02) K/uL Macrocytosis Present Sodium 137 (136-145) mmol/L Potassium 3.7 (3.5-5.1) mmol/L Chloride 104 (98-107) mmol/L Carbon Dioxide 28 (21-32) mmol/L Anion Gap 5.0 (3-11) BUN 11 (7-18) mg/dl Creatinine 0.82 (0.6-1.4) mg/dl Est Cr Clr Drug Dosing 81.5 ml/min Est GFR ( Amer) 98.2 ml/min Est GFR (Non-Af Amer) 84.7 ml/min BUN/Creatinine Ratio 13.6 (10-20) Glucose 102 H (70-99) mg/dl Calcium 8.9 (8.5-10.1) mg/dl Magnesium 2.0 (1.8-2.4) mg/dl Total Bilirubin 0.5 (0.2-1) mg/dl AST 12 L (15-37) U/L ALT 17 (12-78) U/L Alkaline Phosphatase 60 (45-117) U/L Total Creatine Kinase 41 (39-308) U/L Troponin I < 0.015 (0-0.045) ng/ml Total Protein 7.4 (6.4-8.2) gm/dl Albumin 3.3 L (3.4-5.0) gm/dl Globulin 4.1 H (2.5-4.0) gm/dl Albumin/Globulin Ratio 0.8 L (0.9-2) TSH 1.440 (0.300-4.500) uIu/ml COVID-19 Eval Order Covid19 at [facility] SARS-CoV-2 (PCR) (Negative) 03/25/21 Range/Units 17:39 WBC (4.8-10.8) K/uL RBC (4.7-6.1) M/uL Hgb (14.0-18.0) g/dL Hct (42-52) % MCV (80-100) fL MCH (25-34) pg MCHC (32-36) g/dL RDW Std Deviation (36.4-46.3) fL RDW Coeff of Otilia (11.5-14.5) % Plt Count (130-400) K/uL MPV (7.4-10.4) fL Immature Gran % (Auto) % Neut % (Auto) % Lymph % (Auto) % [place] % (Auto) % Eos % (Auto) % Baso % (Auto) % Neut # (Auto) (1.4-6.5) K/uL Lymph # (Auto) (1.2-3.4) K/uL [place] # (Auto) (0.11-0.59) K/uL Eos # (Auto) (0-0.5) K/uL Baso # (Auto) (0-0.2) K/uL Immature Gran # (Auto) (0.00-0.02) K/uL Macrocytosis Sodium (136-145) mmol/L Potassium (3.5-5.1) mmol/L Chloride (98-107) mmol/L Carbon Dioxide (21-32) mmol/L Anion Gap (3-11) BUN (7-18) mg/dl Creatinine (0.6-1.4) mg/dl Est Cr Clr Drug Dosing ml/min Est GFR ( Amer) ml/min Est GFR (Non-Af Amer) ml/min BUN/Creatinine Ratio (10-20) Glucose (70-99) mg/dl Calcium (8.5-10.1) mg/dl Magnesium (1.8-2.4) mg/dl Total Bilirubin (0.2-1) mg/dl AST (15-37) U/L ALT (12-78) U/L Alkaline Phosphatase (45-117) U/L Total Creatine Kinase (39-308) U/L Troponin I (0-0.045) ng/ml Total Protein (6.4-8.2) gm/dl Albumin (3.4-5.0) gm/dl Globulin (2.5-4.0) gm/dl Albumin/Globulin Ratio (0.9-2) TSH (0.300-4.500) uIu/ml COVID-19 Eval Order SARS-CoV-2 (PCR) NEGATIVE (Negative) Administered Medications Carvedilol (Carvedilol 3.125 Mg Tab) 3.125 mg PO BID EZEKIEL Stop: 04/24/21 21:59 Last Admin: 03/25/21 22:19 Dose: 3.125 mg Documented by: [id number] Potassium Chloride 40 meq/ (Sodium Chloride) 1,020 mls @ 75 mls/hr IV .[id number] ONE Stop: 03/26/21 10:05 Last Admin: 03/25/21 21:30 Dose: 75 mls/hr Documented by: [id number] Discontinued Medications Potassium Chloride (Potassium Chloride Crtab 20 Meq Tabcr) 40 meq PO NOW STA Stop: 03/25/21 19:19 Last Admin: 03/25/21 20:39 Dose: Not Given Documented by: [id number] Imaging Data Radiologist's Impression: Cervical Spine CT 03/25/21 17:[address] DOSE: HISTORY: fall TECHNIQUE: Multiaxial CT images of the cervical spine were performed and reformatted in the sagittal and coronal plane without the use of contrast. A dose lowering technique was utilized adhering to the principles of ALARA. COMPARISON: None. FINDINGS: No fractures. No subluxation. Prevertebral soft tissues and the C1-C2 interval are intact. Severe disc space narrowing at C5-C6 and C6-C7. IMPRESSION: No fractures within the cervical spine. ACT 112: Negative or not required by law. Electronically signed by: Chris Jones M.D. 03/25/2021 6:29 PM Chest X-Ray 03/25/21 17:22 XR chest 1V portable CLINICAL HISTORY: weakness, fall COMPARISON STUDY: Chest radiograph March 16, 2021. FINDINGS: Lung volumes are normal. Lungs are clear. There is no pneumothorax or pleural effusion. Cardiac size is stable. Mediastinal contours are normal. There is no evidence for pulmonary edema. IMPRESSION: No acute cardiopulmonary findings. ACT 112: Negative or not required by law. Electronically signed by: Kevin Rogers M.D. 03/25/2021 6:[address] 03/25/21 17:[address] DOSE: 1242.10 mGy.cm HISTORY: fall TECHNIQUE: Multiaxial CT images of the head were performed without the use of intravenous contrast. Automated exposure control was utilized for this study. A dose lowering technique was utilized adhering to the principles of ALARA. Comparison: Head CT 03/16/2021. Findings: The paranasal sinuses and mastoid air cells are clear. The calvarium and skull base are intact. There is no mass, hematoma, midline shift, acute infarct. White matter hypodensity is nonspecific but suggestive of microvascular ischemic change. The ventricles and sulci demonstrate mild age-related involuti onal changes. 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 Impression: No significant change compared to the prior study. No acute intracranial abn ormality. ACT 112: Negative or not required by law. Electronically signed by: Chris Jones M.D. 03/25/2021 6:36 PM Pelvis X-Ray 03/25/21 17:32 XR pelvis 1-2V routine CLINICAL HISTORY: fall COMPARISON: None FINDINGS: Sacroiliac joints and symphysis pubis are intact. No acute fracture within the pelvis or hips. No osseous lesion is identified. IMPRESSION: No acute fracture within the pelvis or hips. ACT 112: Negative or not required by law. Electronically signed by: Kevin Rogers M.D. 03/25/2021 5:55 PM Discharge Plan Visit Data Chief Complaint: Weakness Stated Complaint: Dizzy / Falls ED Provider: Vladimir Mead Discharge Problem: Fall, Ambulatory dysfunction, Arrhythmia Patient Disposition: Admitted As Inpatient Discharge Instructions Interventions: ED Discharge Assessment Last Done: 03/25/21 20:48 Discharge Problem: Fall Qualifiers: Encounter type: initial encounter Qualified Code(s): W19.XXXA - Unspecified fall, initial encounter Arrhythmia Qualifiers: Arrhythmia type: unspecified cardiac arrhythmia Qualified Code(s): I49.9 - C ardiac arrhythmia, unspecified
[2021-03-25 17:52] LABS: Alanine Aminotransferase 17 U/L (12-78); Albumin Level 3.3 gm/dl (3.4-5.0); Aspartate Aminotransferase 12 U/L (15-37); BUN Creatinine Ratio 13.6 (10-20); Blood Urea Nitrogen 11 mg/dl (7-18); Calcium 8.9 mg/dl (8.5-10.1); Carbon Dioxide 28 mmol/L (21-32); Chloride 104 mmol/L (98-107); Creatinine Clr Calc Pharmacy 81.5 ml/min; Est GFR (African American) 98.2 ml/min; Est GFR (Non-African American) 84.7 ml/min; Glucose 102 mg/dl (70-99); Potassium 3.7 mmol/L (3.5-5.1); Sodium 137 mmol/L (136-145)
--- NOTE | 2021-03-25 17:56 | XRay Report ---
XR pelvis 1-2V routine CLINICAL HISTORY: fall COMPARISON: None FINDINGS: Sacroiliac joints and symphysis pubis are intact. No acute fracture within the pelvis or h ips. No osseous lesion is identified. IMPRESSION: No acute fracture within the pelvis or hips. ACT 112: Negative or not required by law. Electronically signed by: Kevin Rogers M.D. 03/25/2021 5:55 PM
[2021-03-25 17:58] LABS: Macrocytosis Present
[2021-03-25 18:03] LABS: Albumin Globulin Ratio 0.8 (0.9-2); Alkaline Phosphatase 60 U/L (45-117); Bilirubin,Total 0.5 mg/dl (0.2-1); Creatine Kinase 41 U/L (39-308); Globulin 4.1 gm/dl (2.5-4.0); Total Protein 7.4 gm/dl (6.4-8.2); Troponin I < 0.015 ng/ml (0-0.045)
--- NOTE | 2021-03-25 18:07 | XRay Report ---
XR chest 1V portable CLINICAL HISTORY: weakness, fall COMPARISON STUDY: Chest radiograph March 16, 2021. FINDINGS: Lung volumes are normal. Lungs are clear. There is no pneumothorax or pleural effusion. Car diac size is stable. Mediastinal contours are normal. There is no evidence for pulmonary edema. IMPRESSION: No acute cardiopulmonary findings. ACT 112: Negative or not required by law. Electronically signed by: Kevin Rogers M.D. 03/25/2021 6:06 PM
--- NOTE | 2021-03-25 18:30 | CT Scan Report ---
CERVICAL SPINE CT CT DOSE: HISTORY: fall TECHNIQUE: Multiaxial CT images of the cervical spine were performed and reformatted in the sagittal and coronal plane without the use of contrast. A dose lowering technique was utilized adhering to th e principles of ALARA. COMPARISON: None. FINDINGS: No fractures. No subluxation. Prevertebral soft tissues and the C1-C2 interval are intact. Severe disc space narrowing at C5-C6 and C6-C7. IMPRESSION: No fractures within the cervical spine. ACT 112: Negative or not required by law. Electronically signed by: Chris Jones M.D. 03/25/2021 6:29 PM
--- NOTE | 2021-03-25 18:37 | CT Scan Report ---
HEAD CT NONCONTRAST CT DOSE: 1242.10 mGy.cm HISTORY: fall TECHNIQUE: Multiaxial CT images of the head were performed without the use of intravenous contrast. A utomated exposure control was utilized for this study. A dose lowering technique was utilized adheri ng to the principles of ALARA. Comparison: Head CT 03/16/2021. Findings: The paranasal sinuses and mastoid air cells are clear. The calvarium and skull base are int act. There is no mass, hematoma, midline shift, acute infarct. White matter hypodensity is nonspecifi c but suggestive of microvascular ischemic change. The ventricles and sulci demonstrate mild age-rela james involutional changes. 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 Impression: No significant change compared to the prior study. No acute intracranial abnormality. ACT 112: Negative or not required by law. Electronically signed by: Chris Jones M.D. 03/25/2021 6:36 PM
[2021-03-25] MEDS ORDERED: POTASSIUM CHLORIDE CRTAB 20 MEQ TABCR PO STA (19:18)
--- NOTE | 2021-03-25 20:06 | History & Physical Report ---
Date of Service March 25, 2021 Assessment & Plan (1) Afib: Plan: Intermittent noted at the ER New onset No prior outpatient documentation of A. fib. hypertension, BP noted to be low at home 90-100s since voluntary weight loss as per patient. 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 Metoprolol) given borderline BP Patient refusing anticoagulation for now for thromboembolic prophylaxis for PAF of unknown duration despite being informed of stroke risk associated with arrhythmia. Hold losartan for now given borderline BP Hold home diuretic given mild clinical dehydration, increasing baseline creatinine PT OT eval Social service RE discharge planning, rehab placement DVT prophylaxis. Lovenox subcu Full code Text document was generated using [employer] voice recognition software. It may contain grammatical or spelling errors. Kindly contact undersigned for clarification of any documentation item in question. History of Present Illness Chief Complaint: Could not get up Primary Care Provider: Tian Harrington DO History obtained from patient and records. 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 Recent confinement last week for fall/ambulatory dysfunction. Patient refused rehab recommendation. Around 2 AM, patient slid off his bed landing on the ground. He could not get up from the floor. No headache/head trauma, chest pain, S OB, syncope, dizziness. No unusual leg swelling. Patient waited manager metrology to holler out for help to a neighbor who subsequently helped him get back to bed. Increased ambulatory difficulty noted at home. SBP 90s upon arrival at the ER. Intermittent A. fib noted on the monitor as per ED monitoring and evaluation advisor. Medical History as above Surgical History : Dental surgery, tonsillectomy, cataract surgeries, umbilical hernia repair Family History : Heart disease, thyroid disease, hypertension Personal/Social history : Past tobacco abuse, daily alcohol intake as per records denies abuse, retired hotel/gallery manager Allergies Allergy/AdvReac Type Severity Reaction Status Date / Time codeine Allergy Mild bp Verified 03/25/21 17:22 increases guaifenesin Allergy Mild bp Verified 03/25/21 17:22 increases lactose Allergy Mild Gastrointestinal Verified 03/25/21 17:22 Upset tamsulosin Allergy Hives Unverified 03/25/21 17:22 Home Medications Medication Instructions Recorded Confirmed Type allopurinol 300 mg tablet 150 mg PO QAM 08/02/18 03/25/21 History atorvastatin 10 mg tablet 5 mg PO QAM 08/02/18 03/25/21 History carvedilol 3.125 mg tablet 3.125 mg PO BID 08/02/18 03/25/21 History cetirizine 10 mg tablet 10 mg PO DAILY PRN 08/02/18 03/25/21 History clobetasol 0.05 % topical cream 1 applic TOPICAL DAILY PRN 08/02/18 03/25/21 History fluticasone propionate 50 2 spray INTRANASAL DAILY PRN 08/02/18 03/25/21 History mcg/actuation nasal spray,suspension (Flonase Allergy Relief) lorazepam 0.5 mg tablet 0.5 mg PO BID PRN 08/02/18 03/25/21 History metronidazole 1 % topical cream 1 applic TOPICAL DAILY PRN 08/02/18 03/25/21 History watrzxlo-utr-qzreb acid 300 1 tab PO QAM 08/02/18 03/25/21 History mcg-lycopene 600 mcg-lutein 300 mcg tablet (Centrum Silver Men) torsemide 5 mg tablet 5 mg PO QAM 08/02/18 03/25/21 History triamcinolone acetonide 0.5 % 1 applic TOPICAL BID PRN 08/02/18 03/25/21 History topical cream losartan 50 mg tablet 50 mg PO DAILY 03/16/21 03/25/21 History prednisone 5 mg tablet 5 mg PO DAILY 03/16/21 03/25/21 History cyanocobalamin (vitamin B-12) 500 1,000 mcg PO QAM #30 tab 03/19/21 03/25/21 Rx mcg tablet folic acid 1 mg tablet 1 mg PO QAM #30 tab 03/19/21 03/25/21 Rx thiamine HCl (vitamin B1) 100 mg 100 mg PO QAM #30 tab 03/19/21 03/25/21 Rx tablet (Vitamin B-1) Past Med/Surg History Medical History (Updated 03/25/21 @ 23:01 by Bartolome Garcia MD) Anemia Anxiety Gout Hyperlipidemia Hypertension Myeloid dysplasia diagnosed 2014--remission for 2 years- CHEMO NO PORTS Osteoarthritis Sciatic leg pain left side Surgical History History of colonoscopy History of oral surgery X2 MANDIBULAR PILY History of tonsillectomy and adenoidectomy History of umbilical hernia repair Hx of left cataract extraction Hx of left inguinal hernia repair Hx of right inguinal hernia repair Social History Smoking Status: Former smoker Second Hand Exposure: No; Do You Dip or Chew Tobacco: No; Hx Alcohol Use: Yes Alcohol type: wine Hx Substance Use: No Preferred Language: Lao Communication Ability: Effective Job Tracer Required: No Beliefs That Will Affect Care: None marital status: / Current Living Situation: Alone Current Living Situation Comment: pt is a Other Information That Helps Us Care for You: No Feels Safe at Home: Yes Safety Concerns: Feels Safe At This Time Assistive Devices: Glasses and Walker Review of Systems Review of Systems: As per HPI, all 10 systems reviewed, all other ROS negative Physical Exam Physical Exam: GENERAL: Comfortable, slightly anxious, no respiratory distress SKIN: Pallor, warm HEENT: Bespectacled, pale palpebral conjunctivae, no ptosis, dry buccal mucosa NECK : Supple, no tenderness CHEST : CTA, no tenderness HEART : irregular, no obvious murmurs ABDOMEN: Some distention, nontender EXTREMITIES : No LE swelling/tenderness, no other conspicuous deformities noted NEUROLOGIC : Coherent, no facial asymmetry, no other gross focality Results & Data Results & Data ([facility]) Vital Signs (Past 12 Hours) Vital Signs Temp Pulse Pulse Resp BP BP Pulse Ox 03/25/21 18:30 77 16 115/56 L 99 03/25/21 17:54 71 16 97 03/25/21 17:39 96 03/25/21 16:55 36.7 C 85 16 92/59 L 97 Laboratory Results Laboratory Results WBC 9.73 K/uL (4.8-10.8) 03/25/21 17:08 RBC 2.75 M/uL (4.7-6.1) L 03/25/21 17:08 Hgb 10.4 g/dL (14.0-18.0) L 03/25/21 17:08 Hct 30.8 % (42-52) L 03/25/21 17:08 MCV 112.0 fL (80-100) H 03/25/21 17:08 MCH 37.8 pg (25-34) H 03/25/21 17:08 MCHC 33.8 g/dL (32-36) 03/25/21 17:08 RDW Std Deviation 53.3 fL (36.4-46.3) H 03/25/21 17:08 RDW Coeff of Otilia 13.0 % (11.5-14.5) 03/25/21 17:08 Plt Count 182 K/uL (130-400) 03/25/21 17:08 MPV 10.3 fL (7.4-10.4) 03/25/21 17:08 Immature Gran % (Auto) 0.4 % 03/25/21 17:08 Neut % (Auto) 70.9 % 03/25/21 17:08 Lymph % (Auto) 13.5 % 03/25/21 17:08 [place] % (Auto) 14.9 % 03/25/21 17:08 Eos % (Auto) 0.1 % 03/25/21 17:08 Baso % (Auto) 0.2 % 03/25/21 17:08 Neut # (Auto) 6.90 K/uL (1.4-6.5) H 03/25/21 17:08 Lymph # (Auto) 1.31 K/uL (1.2-3.4) 03/25/21 17:08 [place] # (Auto) 1.45 K/uL (0.11-0.59) H 03/25/21 17:08 Eos # (Auto) 0.01 K/uL (0-0.5) 03/25/21 17:08 Baso # (Auto) 0.02 K/uL (0-0.2) 03/25/21 17:08 Immature Gran # (Auto) 0.04 K/uL (0.00-0.02) H 03/25/21 17:08 Macrocytosis Present 03/25/21 17:08 Sodium 137 mmol/L (136-145) 03/25/21 17:08 Potassium 3.7 mmol/L (3.5-5.1) 03/25/21 17:08 Chloride 104 mmol/L (98-107) 03/25/21 17:08 Carbon Dioxide 28 mmol/L (21-32) 03/25/21 17:08 Anion Gap 5.0 (3-11) 03/25/21 17:08 BUN 11 mg/dl (7-18) 03/25/21 17:08 Creatinine 0.82 mg/dl (0.6-1.4) 03/25/21 17:08 Est Cr Clr Drug Dosing 81.5 ml/min 03/25/21 17:08 Est GFR ( Amer) 98.2 ml/min 03/25/21 17:08 Est GFR (Non-Af Amer) 84.7 ml/min 03/25/21 17:08 BUN/Creatinine Ratio 13.6 (10-20) 03/25/21 17:08 Glucose 102 mg/dl (70-99) H 03/25/21 17:08 Calcium 8.9 mg/dl (8.5-10.1) 03/25/21 17:08 Magnesium 2.0 mg/dl (1.8-2.4) 03/25/21 17:08 Total Bilirubin 0.5 mg/dl (0.2-1) 03/25/21 17:08 AST 12 U/L (15-37) L 03/25/21 17:08 ALT 17 U/L (12-78) 03/25/21 17:08 Alkaline Phosphatase 60 U/L (45-117) 03/25/21 17:08 Total Creatine Kinase 41 U/L (39-308) 03/25/21 17:08 Troponin I < 0.015 ng/ml (0-0.045) 03/25/21 17:08 Total Protein 7.4 gm/dl (6.4-8.2) 03/25/21 17:08 Albumin 3.3 gm/dl (3.4-5.0) L 03/25/21 17:08 Globulin 4.1 gm/dl (2.5-4.0) H 03/25/21 17:08 Albumin/Globulin Ratio 0.8 (0.9-2) L 03/25/21 17:08 TSH 1.440 uIu/ml (0.300-4.500) 03/25/21 17:08 COVID-19 Eval Order Covid19 at [facility] 03/25/21 17:39 SARS-CoV-2 (PCR) NEGATIVE (Negative) 03/25/21 17:[address] 03/25/21 17:[address] DOSE: HISTORY: fall TECHNIQUE: Multiaxial CT images of the cervical spine were performed and reformatted in the sagittal and coronal plane without the use of contrast. A dose lowering technique was utilized adhering to the principles of ALARA. COMPARISON: None. FINDINGS: No fractures. No subluxation. Prevertebral soft tissues and the C1-C2 interval are intact. Severe disc space narrowing at C5-C6 and C6-C7. IMPRESSION: No fractures within the cervical spine. ACT 112: Negative or not required by law. Electronically signed by: Chris Jones M.D. 03/25/2021 6:29 PM Chest X-Ray 03/25/21 17:22 XR chest 1V portable CLINICAL HISTORY: weakness, fall COMPARISON STUDY: Chest radiograph March 16, 2021. FINDINGS: Lung volumes are normal. Lungs are clear. There is no pneumothorax or pleural effusion. Cardiac size is stable. Mediastinal contours are normal. There is no evidence for pulmonary edema. IMPRESSION: No acute cardiopulmonary findings. ACT 112: Negative or not required by law. Electronically signed by: Kevin Rogers M.D. 03/25/2021 6:[address] 03/25/21 17:[address] DOSE: 1242.10 mGy.cm HISTORY: fall TECHNIQUE: Multiaxial CT images of the head were performed without the use of intravenous contrast. Automated exposure control was utilized for this study. A dose lowering technique was utilized adhering to the principles of ALARA. Comparison: Head CT 03/16/2021. Findings: The paranasal sinuses and mastoid air cells are clear. The calvarium and skull base are intact. There is no mass, hematoma, midline shift, acute infarct. White matter hypodensity is nonspecific but suggestive of microvascular ischemic change. The ventricles and sulci demonstrate mild age-related involutional changes. 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 Impression: No significant change compared to the prior study. No acute intracranial abnormality. ACT 112: Negative or not required by law. Electronically signed by: Chris Jones M.D. 03/25/2021 6:36 PM Pelvis X-Ray 03/25/21 17:32 XR pelvis 1-2V routine CLINICAL HISTORY: fall COMPARISON: None FINDINGS: Sacroiliac joints and symphysis pubis are intact. No acute fracture within the pelvis or hips. No osseous lesion is identified. IMPRESSION: No acute fracture within the pelvis or hips. ACT 112: Negative or not required by law. Electronically signed by: Kevin Rogers M.D. 03/25/2021 5:55 PM Diagnostic Findings EKG as per my interpretation rate 80, A. fib, LAD, LAFB, T wave flattening inferior and septal leads
[2021-03-25] MEDS ORDERED: POTASSIUM CHLORIDE 40 MEQ in SODIUM CHLORIDE 0.9% 1000ML 1,000 ML IV ONE (20:30)
[2021-03-25] MEDS ORDERED: PROMETHAZINE HCL 12.5 MG in SODIUM CHLORIDE 0.9% 50 ML IV PRN (21:15)
[2021-03-25] MEDS ORDERED: FLUTICASONE PROPIONATE NA SPR 16 GM BTL PRN (21:15)
[2021-03-25] MEDS ORDERED: traMADol HCL 50 MG TABLET PO PRN (21:15)
[2021-03-25] MEDS ORDERED: LORazepam 0.5 MG TAB PO PRN (21:15)
[2021-03-25] MEDS ORDERED: CETIRIZINE HCL 10 MG TABLET PO PRN (22:00)
[2021-03-25] MEDS: carvediloL 3.125 MG TAB PO SCH (22:19)
[2021-03-26] MEDS ORDERED: [UNRECOGNIZED DRUG - REMARK] SCH
[2021-03-26 02:16] LABS: Appearance Urine Clear (Clear); Bacteria Urine Automated Negative (Negative); Bilirubin Urine Negative (Negative); Blood Urine Negative (Negative); Color Urine Yellow; Glucose Urine UA Negative (Negative); Ketones Urine Trace (Negative); Leukocyte Esterase Urine Negative (Negative); Nitrite Urine Negative (Negative); Protein Urine 1+ (Negative); RBC Urine Automated 0-4 /hpf (0-4); Specific Gravity Urine 1.013 (1.000-1.030); Urobilinogen Urine Negative (Negative); pH Urine 6.5 (4.5-7.5)
[2021-03-26 05:55] LABS: Basophils # (auto) 0.01 K/uL (0-0.2); Basophils % (auto) 0.1 %; Eosinophils # (auto) 0.04 K/uL (0-0.5); Eosinophils % (auto) 0.5 %; Hematocrit (blood only) 29.2 % (42-52); Immature Granulocytes # (auto) 0.02 K/uL (0.00-0.02); Immature Granulocytes % (auto) 0.2 %; Lymphocytes # (auto) 1.09 K/uL (1.2-3.4); Lymphocytes % (auto) 13.5 %; Mean Corpuscular Hemoglobin 38.3 pg (25-34); Mean Corpuscular Hgb Conc 34.2 g/dL (32-36); Mean Corpuscular Volume 111.9 fL (80-100); Mean Platelet Volume 9.6 fL (7.4-10.4); Monocytes # (auto) 0.69 K/uL (0.11-0.59); Monocytes % (auto) 8.6 %; Neutrophils # (auto) 6.21 K/uL (1.4-6.5); Neutrophils % (auto) 77.1 %; Platelet Count 152 K/uL (130-400); Red Blood Count 2.61 M/uL (4.7-6.1); White Blood Count 8.06 K/uL (4.8-10.8)
[2021-03-26 06:06] LABS: Partial Thromboplastin Ratio 1.2; Partial Thromboplastin Time 32.2 Seconds (21.0-31.0)
[2021-03-26 06:19] LABS: BUN Creatinine Ratio 13.9 (10-20); Calcium 8.4 mg/dl (8.5-10.1); Creatinine Clr Calc Pharmacy 89.7 ml/min; Est GFR (African American) 104.2 ml/min; Est GFR (Non-African American) 89.9 ml/min; Potassium 3.6 mmol/L (3.5-5.1)
[2021-03-26 06:31] LABS: Macrocytosis Present
[2021-03-26] MEDS: carvediloL 3.125 MG TAB PO SCH (08:03)
[2021-03-26] MEDS: ATORVASTATIN 10 MG TAB PO SCH (08:04)
[2021-03-26] MEDS: ENOXAPARIN INJ 30 MG/0.3 ML SYR SQ SCH ×2 (08:04→08:15)
[2021-03-26] MEDS: CYANOCOBALAMIN 500 MCG TABLET (VITAMIN B-12) PO SCH (08:04)
[2021-03-26] MEDS: predniSONE 5 MG TAB PO SCH (08:05)
[2021-03-26] MEDS: FOLIC ACID 1 MG TAB PO SCH (08:05)
[2021-03-26] MEDS: allopurinoL 300 MG TAB PO SCH (08:05)
[2021-03-26] MEDS: THIAMINE HCL 100 MG TAB PO SCH (08:06)
--- NOTE | 2021-03-26 09:53 | Cardiology Consultation ---
Date of Consultation March 26, 2021 Assessment & Plan (1) Afib: (2) Fall: Patient is a 80-year-old male with findings as well outlined in admission H&P and above. He carries an underlying history of relapsing polychondritis, diastolic LV dysfunction. Recent difficulties with gait instability and multiple falls now presenting with newly observed atrial fibrillation after a fall. Blood pressures have been relatively low since admission and heart rates mildly elevated with activity. I discussed management of atrial fibrillation in detail with the patient. As noted on admission he declines anticoagulation currently or chronically. He understands potential risk of stroke. He does have multiple bleeding risk factors including fall history and underlying anemia/dysplasia Plan: We will discontinue carvedilol given relatively low blood pressures add metoprolol succinate at 12.5 mg twice per day first dose this morning Agree with holding diuretic and losartan until blood pressure assessment established. Potassium supplemented Echocardiogram recently performed in November demonstrates preserved LV systolic function we will repeat limited study this admission given septal Q waves on EKG if patient allows (initially deferred) History of Present Illness Reason for Consultation: Atrial fibrillation Requesting Physician: Dr Sparks Attending Physician: Ash Sparks MD History of Present Illness Patient is a 80-year-old male with underlying constellation of issues which include 1. Relapsing polychondritis on chronic prednisone therapy, associated neuropathy 2. Myelodysplastic syndrome past transfusion and Procrit dependent 3. Paroxysmal atrial fibrillation 4. Hypertension 5. Hyperlipidemia. Patient is referred for management of atrial fibrillation observed on this admission. He was recently hospitalized with weakness fatigue and mechanical falls. Patient has not been aware of any irregular heartbeats or tachypalpitations. Notes no acute neurologic complaints, prior TIA or stroke. Head CT 1 week ago negative for infarct. This admission once again fell to the floor and required assistance. No acute inciting event. Monitor on admission and since admission demonstrating coarse atrial fibrillation/flutter with variable heart rate response He denies any chest pains orthopnea. Has had difficulty with persistent lower extremity edema treated with diuretics. Patient has been reducing the dose due to urinary frequency. He notes deliberate attempt at weight loss with greater than 20 to 30 pound weight loss. No bleeding difficulties. Does note gait instability and falls including one earlier this week. No headaches or visual changes. Allergies Allergy/AdvReac Type Severity Reaction Status Date / Time codeine Allergy Mild bp Verified 03/25/21 17:22 increases guaifenesin Allergy Mild bp Verified 03/25/21 17:22 increases lactose Allergy Mild Gastrointestinal Verified 03/25/21 17:22 Upset tamsulosin Allergy Hives Unverified 03/25/21 17:22 Home Medications Medication Instructions Recorded Confirmed Type allopurinol 300 mg tablet 150 mg PO QAM 08/02/18 03/25/21 History atorvastatin 10 mg tablet 5 mg PO QAM 08/02/18 03/25/21 History carvedilol 3.125 mg tablet 3.125 mg PO BID 08/02/18 03/25/21 History cetirizine 10 mg tablet 10 mg PO DAILY PRN 08/02/18 03/25/21 History clobetasol 0.05 % topical cream 1 applic TOPICAL DAILY PRN 08/02/18 03/25/21 History fluticasone propionate 50 2 spray INTRANASAL DAILY PRN 08/02/18 03/25/21 History mcg/actuation nasal spray,suspension (Flonase Allergy Relief) lorazepam 0.5 mg tablet 0.5 mg PO BID PRN 08/02/18 03/25/21 History metronidazole 1 % topical cream 1 applic TOPICAL DAILY PRN 08/02/18 03/25/21 History asckcair-xrp-azbbq acid 300 1 tab PO QAM 08/02/18 03/25/21 History mcg-lycopene 600 mcg-lutein 300 mcg tablet (Centrum Silver Men) torsemide 5 mg tablet 5 mg PO QAM 08/02/18 03/25/21 History triamcinolone acetonide 0.5 % 1 applic TOPICAL BID PRN 08/02/18 03/25/21 History topical cream losartan 50 mg tablet 50 mg PO DAILY 03/16/21 03/25/21 History prednisone 5 mg tablet 5 mg PO DAILY 03/16/21 03/25/21 History cyanocobalamin (vitamin B-12) 500 1,000 mcg PO QAM #30 tab 03/19/21 03/25/21 Rx mcg tablet folic acid 1 mg tablet 1 mg PO QAM #30 tab 03/19/21 03/25/21 Rx thiamine HCl (vitamin B1) 100 mg 100 mg PO QAM #30 tab 03/19/21 03/25/21 Rx tablet (Vitamin B-1) Patient History Medical History (Updated 08/31/21 @ 10:33 by Adam Camacho MD) Anemia Anxiety Gout Hyperlipidemia Hypertension Myeloid dysplasia diagnosed 2014--remission for 2 years- CHEMO NO PORTS Osteoarthritis Sciatic leg pain left side Surgical History History of colonoscopy History of oral surgery X2 MANDIBULAR PILY History of tonsillectomy and adenoidectomy History of umbilical hernia repair Hx of left cataract extraction Hx of left inguinal hernia repair Hx of right inguinal hernia repair Social History Smoking Status: Former smoker Second Hand Exposure: No; Do You Dip or Chew Tobacco: No; Hx Alcohol Use: Yes Alcohol type: wine Hx Substance Use: No Preferred Language: Malawian Communication Ability: Effective Diazo Technician Required: No Beliefs That Will Affect Care: None marital status: / Current Living Situation: Alone Current Living Situation Comment: pt is a How many Children do You have: 0 Other Information That Helps Us Care for You: No Feels Safe at Home: Yes Safety Concerns: Feels Safe At This Time Assistive Devices: Cane and Walker Review of Systems Review of Systems: All systems reviewed & are unremarkable except as noted in HPI & below Physical Exam Constitutional: + ill appearing; no acute distress Eyes: PERRL, conjunctivae normal, anicteric sclerae ENMT: external ear and nose normal, oropharynx normal Neck: trachea midline, no thyromegaly Respiratory: normal respiratory effort, lungs clear to auscultation Cardiovascular: Rate/Rhythm: + irregularly irregular Heart Sounds: normal S1 and normal S2; no murmur and no cardiac rub Extremities: + edema (Trace) Chest (Breasts): normal inspection/palpation of breasts Musculoskeletal: no cyanosis or clubbing, extremities motor strength 5/5 Results & Data ([facility]) Vital Signs (Past 12 Hours) Vital Signs Temp Pulse Pulse Resp BP Pulse Ox 03/26/21 08:15 112 H 100/65 03/26/21 04:07 37.3 C 71 18 98/58 L 95 03/25/21 23:44 84 03/25/21 23:15 37 C 73 18 97/58 L 95 Laboratory Results Laboratory Results - last 24 hr 03/25/21 03/25/21 03/25/21 17:08 17:08 17:39 WBC 9.73 RBC 2.75 L Hgb 10.4 L Hct 30.8 L MCV 112.0 H MCH 37.8 H MCHC 33.8 RDW Std Deviation 53.3 H RDW Coeff of Otilia 13.0 Plt Count 182 MPV 10.3 Immature Gran % (Auto) 0.4 Neut % (Auto) 70.9 Lymph % (Auto) 13.5 [place] % (Auto) 14.9 Eos % (Auto) 0.1 Baso % (Auto) 0.2 Neut # (Auto) 6.90 H Lymph # (Auto) 1.31 [place] # (Auto) 1.45 H Eos # (Auto) 0.01 Baso # (Auto) 0.02 Immature Gran # (Auto) 0.04 H Macrocytosis Present APTT PTT Ratio Sodium 137 Potassium 3.7 Chloride 104 Carbon Dioxide 28 Anion Gap 5.0 BUN 11 Creatinine 0.82 Est Cr Clr Drug Dosing 81.5 Est GFR ( Amer) 98.2 Est GFR (Non-Af Amer) 84.7 BUN/Creatinine Ratio 13.6 Glucose 102 H Calcium 8.9 Magnesium 2.0 Total Bilirubin 0.5 AST 12 L ALT 17 Alkaline Phosphatase 60 Total Creatine Kinase 41 Troponin I < 0.015 Total Protein 7.4 Albumin 3.3 L Globulin 4.1 H Albumin/Globulin Ratio 0.8 L TSH 1.440 Urine Color Urine Appearance Urine pH Ur Specific [place] Urine Protein Urine Glucose (UA) Urine Ketones Urine Blood Urine Nitrite Urine Bilirubin Urine Urobilinogen Ur Leukocyte Esterase Urine WBC (Auto) Urine RBC (Auto) U Hyaline Cast (Auto) U Epithel Cells (Auto) Urine Bacteria (Auto) COVID-19 Eval Order Covid19 at [facility] SARS-CoV-2 (PCR) 03/25/21 03/25/21 03/26/21 17:39 20:13 02:00 WBC RBC Hgb Hct MCV MCH MCHC RDW Std Deviation RDW Coeff of Otilia Plt Count MPV Immature Gran % (Auto) Neut % (Auto) Lymph % (Auto) [place] % (Auto) Eos % (Auto) Baso % (Auto) Neut # (Auto) Lymph # (Auto) [place] # (Auto) Eos # (Auto) Baso # (Auto) Immature Gran # (Auto) Macrocytosis APTT PTT Ratio Sodium Potassium Chloride Carbon Dioxide Anion Gap BUN Creatinine Est Cr Clr Drug Dosing Est GFR ( Amer) Est GFR (Non-Af Amer) BUN/Creatinine Ratio Glucose Calcium Magnesium Total Bilirubin AST ALT Alkaline Phosphatase Total Creatine Kinase 30 L Troponin I Total Protein Albumin Globulin Albumin/Globulin Ratio TSH Urine Color Yellow Urine Appearance Clear Urine pH 6.5 Ur Specific [place] 1.013 Urine Protein 1+ H Urine Glucose (UA) Negative Urine Ketones Trace H Urine Blood Negative Urine Nitrite Negative Urine Bilirubin Negative Urine Urobilinogen Negative Ur Leukocyte Esterase Negative Urine WBC (Auto) 1-5 Urine RBC (Auto) 0-4 U Hyaline Cast (Auto) 1-5 U Epithel Cells (Auto) 10-20 H Urine Bacteria (Auto) Negative COVID-19 Eval Order SARS-CoV-2 (PCR) NEGATIVE 03/26/21 03/26/21 03/26/21 05:35 05:35 05:35 WBC 8.06 RBC 2.61 L Hgb 10.0 L Hct 29.2 L MCV 111.9 H MCH 38.3 H MCHC 34.2 RDW Std Deviation 53.0 H RDW Coeff of Otilia 13.0 Plt Count 152 MPV 9.6 Immature Gran % (Auto) 0.2 Neut % (Auto) 77.1 Lymph % (Auto) 13.5 [place] % (Auto) 8.6 Eos % (Auto) 0.5 Baso % (Auto) 0.1 Neut # (Auto) 6.21 Lymph # (Auto) 1.09 L [place] # (Auto) 0.69 H Eos # (Auto) 0.04 Baso # (Auto) 0.01 Immature Gran # (Auto) 0.02 Macrocytosis Present APTT 32.2 H PTT Ratio 1.2 Sodium 141 Potassium 3.6 Chloride 109 H Carbon Dioxide 28 Anion Gap 4.0 BUN 10 Creatinine 0.71 Est Cr Clr Drug Dosing 89.7 Est GFR ( Amer) 104.2 Est GFR (Non-Af Amer) 89.9 BUN/Creatinine Ratio 13.9 Glucose 97 Calcium 8.4 L Magnesium Total Bilirubin AST ALT Alkaline Phosphatase Total Creatine Kinase Troponin I Total Protein Albumin Globulin Albumin/Globulin Ratio TSH Urine Color Urine Appearance Urine pH Ur Specific [place] Urine Protein Urine Glucose (UA) Urine Ketones Urine Blood Urine Nitrite Urine Bilirubin Urine Urobilinogen Ur Leukocyte Esterase Urine WBC (Auto) Urine RBC (Auto) U Hyaline Cast (Auto) U Epithel Cells (Auto) Urine Bacteria (Auto) COVID-19 Eval Order SARS-CoV-2 (PCR) Diagnostic Findings Echocardiogram 11/30/2020 The left ventricular cavity size is normal. The LV wall thickness is mildly increased (concentric). The basal septum is thickened and angulated consistent with sigmoid septum. The left ventricular wall motion is normal. The qualitative LV ejection fraction is 55-59% (normal). The left ventricular diastolic function is moderately abnormal (grade II). There is trace aortic insufficiency There is trace mitral insufficiency Mild tricuspid regurgitation is present. The aortic root and proximal ascending aorta are mildly enlarged. (4.0/4.2 cm) (1) Fall Encounter type: initial encounter Qualified Code(s): W19.XXXA - Unspecified fall, initial encounter
--- NOTE | 2021-03-26 12:44 | Hospitalist Progress Note ---
Date of Service March 26, 2021 Assessment & Plan (1) Afib: Plan: New onset A. fib with RVR Recurrent falls hypertension, BP noted to be low at home 90-100s since voluntary weight loss as per patient. 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 Hemodynamically stable. Rate is controlled. Appreciate cardiology input. Discontinue carvedilol and start patient on metoprolol. Continue holding losartan/diuretics given soft systolic blood pressure. With PT/OT. Patient states that he wants to go to senior care. Patient refusing anticoagulation for now for thromboembolic prophylaxis for PAF of unknown duration. Confirmed with patient again today that he does not want to be on any anticoagulation DVT prophylaxis. Lovenox subcu Full code Text document was generated using [employer] voice recognition software. It may contain grammatical or spelling errors. Kindly contact undersigned for clarification of any documentation item in question. Admission and Anticipated Discharge Date Admission Date: March 25, 2021 Subjective Patient is doing okay this morning. Denies any chest pain, shortness of breath, palpitations or any dizziness. Denies any headache, nausea, vomiting or any vision blurriness. Review of systems negative. Review of Systems Review of Systems: All systems reviewed & are unremarkable except as noted in HPI & below Physical Exam Physical Exam: General: A&Ox3 HENT: NCAT, MMM, EOMI Eyes: PERRLA Neck: Supple, normal range of motion CVS: normal rate with irregular rhythm Resp: b/l decrease breath sounds Abdomen: Soft, ND/NT, +BS Extremities: No c/c/e Neuro: face symmetric, strength grossly equal, no focal deficit Skin: warm and dry, no rashes/lesions/errythema MSK: normal ROM, no joint swelling/erythema Results & Data Results & Data ([facility]) Vital Signs (Past 12 Hours) Vital Signs Temp Pulse Pulse Resp BP Pulse Ox 03/26/21 11:00 36.9 C 112 H 18 96/69 L 95 03/26/21 08:15 112 H 100/65 03/26/21 08:10 36.8 C 86 16 118/62 98 03/26/21 08:00 75 03/26/21 04:07 37.3 C 71 18 98/58 L 95
[2021-03-26] MEDS: METOPROLOL SUCC 25MG EXT REL TAB PO SCH ×2 (13:03→21:16)
--- NOTE | 2021-03-26 23:24 | Electrocardiogram Report ---
Test Reason : Blood Pressure : / mmHG Vent. Rate : 079 BPM Atrial Rate : 073 BPM P-R Int : 000 ms QRS Dur : 084 ms QT Int : 410 ms P-R-T Axes : 000 -14 013 degrees QTc Int : 470 ms Atrial fibrillation Septal infarct , age undetermined Abnormal ECG When compared with ECG of 16-MAR-2021 17:54, Atrial fibrillation has replaced Sinus rhythm Septal infarct is now Present Confirmed by Ken Horton ([id number]) on 03/26/2021 11:23:36 PM Referred By: REFERRED SELF Confirmed By:Ken Horton
[2021-03-27] MEDS: allopurinoL 300 MG TAB PO SCH (07:55)
[2021-03-27] MEDS: ENOXAPARIN INJ 30 MG/0.3 ML SYR SQ SCH (07:55)
[2021-03-27] MEDS: THIAMINE HCL 100 MG TAB PO SCH (07:55)
[2021-03-27] MEDS: ATORVASTATIN 10 MG TAB PO SCH (07:55)
[2021-03-27] MEDS: METOPROLOL SUCC 25MG EXT REL TAB PO SCH ×2 (07:56→21:38)
[2021-03-27] MEDS: predniSONE 5 MG TAB PO SCH (07:56)
[2021-03-27] MEDS: FOLIC ACID 1 MG TAB PO SCH (07:56)
[2021-03-27] MEDS: CYANOCOBALAMIN 500 MCG TABLET (VITAMIN B-12) PO SCH (07:56)
[2021-03-27] MEDS ORDERED: POTASSIUM CHLORIDE CRTAB 20 MEQ TABCR PO STA (11:14)
--- NOTE | 2021-03-27 11:16 | Hospitalist Progress Note ---
Date of Service March 27, 2021 Assessment & Plan (1) Afib: Plan: New onset A. fib with RVR Now in sinus rhythm w/PVCs Coreg changed to metoprolol losartan and torsemide held, plan to discontinue on DC (given pt's lower BP) Patient refusing anticoagulation for thromboembolic prophylaxis for PAF of unknown duration. Cardiology following Recurrent falls PT/OT. [facility] Hypertension, BP noted to be low at home 90-100s since voluntary weight loss as per patient. stopped diuretics, coreg changed to metoprolol, as above Hyperlipidemia on statin Rx Chronic venous insufficiency on diuretic Rx, leg swelling improved on current regimen as per patient Relapsing polychondritis on steroid Rx Myelodysplastic syndrome status post therapy Chronic anemia, hemoglobin at baseline Past tobacco abuse DVT prophylaxis. Lovenox subcu Full code Admission and Anticipated Discharge Date Admission Date: March 25, 2021 Subjective Patient seen in follow up of Afib, amb. dysfunction Sitting in the chair in NAD Denies any chest pain, shortness of breath, palpitations or any dizziness. Inquires about DC to rehab Review of Systems Review of Systems: All systems reviewed & are unremarkable except as noted in Subjective Physical Exam Physical Exam: General: A&Ox3, elderly thin M in NAD HENT: NCAT, MMM, EOMI, PERRL Neck: Supple, normal range of motion CVS: normal rate , regular, no significant LE edema Resp: CTAB, no wheezing, rhonchi, crackles Abdomen: Soft, ND/NT, +BS Extremities: No c/c/e Neuro: face symmetric, speech fluent, moves extremities Skin: warm and dry, no rashes/lesions/erythema MSK: normal ROM, no joint swelling/erythema Results & Data Results & Data ([facility]) Vital Signs (Past 12 Hours) Vital Signs Temp Pulse Pulse Pulse Resp BP Pulse Ox 03/27/21 07:33 36.9 C 64 18 118/63 97 03/27/21 03:17 36.7 C 70 16 109/61 97 03/26/21 23:44 64 Laboratory Results 03/27/21 03/27/21 Range/Units 11:20 11:20 WBC 8.28 (4.8-10.8) K/uL RBC 2.55 L (4.7-6.1) M/uL Hgb 9.5 L (14.0-18.0) g/dL Hct 28.4 L (42-52) % MCV 111.4 H (80-100) fL MCH 37.3 H (25-34) pg MCHC 33.5 (32-36) g/dL RDW Std Deviation 53.0 H (36.4-46.3) fL RDW Coeff of Otilia 13.1 (11.5-14.5) % Plt Count 161 (130-400) K/uL MPV 9.4 (7.4-10.4) fL Sodium 140 (136-145) mmol/L Potassium 3.9 (3.5-5.1) mmol/L Chloride 107 (98-107) mmol/L Carbon Dioxide 27 (21-32) mmol/L Anion Gap 6.0 (3-11) BUN 15 (7-18) mg/dl Creatinine 0.85 (0.6-1.4) mg/dl Est Cr Clr Drug Dosing 78.6 ml/min Est GFR ( Amer) 96.7 ml/min Est GFR (Non-Af Amer) 83.5 ml/min BUN/Creatinine Ratio 18.2 (10-20) Glucose 106 H (70-99) mg/dl Calcium 8.8 (8.5-10.1) mg/dl Phosphorus 3.8 (2.5-4.9) mg/dl Magnesium 2.3 (1.8-2.4) mg/dl Medications Administered Current Inpatient Medications Allopurinol (Allopurinol 300 Mg Tab) 150 mg PO [facility] Stop: 04/25/21 08:59 Last Admin: 03/27/21 07:55 Dose: 150 mg Documented by: Atorvastatin Calcium (Atorvastatin 10 Mg Tab) 5 mg PO [facility] Stop: 04/25/21 08:59 Last Admin: 03/27/21 07:55 Dose: 5 mg Documented by: Cetirizine HCl (Cetirizine Hcl 10 Mg Tablet) 10 mg PO DAILY PRN PRN Reason: Allergy Symptoms Stop: 04/24/21 21:59 Cyanocobalamin (Cyanocobalamin 500 Mcg Tablet (Vitamin B-12)) 1,000 mcg PO [facility] Stop: 04/25/21 08:59 Last Admin: 03/27/21 07:56 Dose: 1,000 mcg Documented by: Enoxaparin Sodium (Enoxaparin Inj 30 Mg/0.3 Ml Syr) 30 mg SQ QAM [facility] Stop: 04/25/21 08:59 Last Admin: 03/27/21 07:55 Dose: Not Given Documented by: Fluticasone Propionate (Fluticasone Propionate Na Spr 16 Gm Btl) 2 sprays NA DAILY PRN PRN Reason: Allergy Symptoms Stop: 04/24/21 21:14 Folic Acid ([facility] Acid 1 Mg Tab) [facility] Stop: 04/25/21 08:59 Last Admin: 03/27/21 07:56 Dose: 1 mg Documented by: Promethazine HCl 12.5 mg/ (Sodium Chloride) 50.5 mls @ 202 mls/hr IV Q6H PRN PRN Reason: Nausea And Vomiting Stop: 04/24/21 21:14 Lorazepam (Lorazepam 0.5 Mg Tab) 0.5 mg PO BID PRN PRN Reason: Anxiety Stop: 04/24/21 21:14 Metoprolol Succinate (Metoprolol Succ 25mg Ext Rel Tab) 12.5 mg PO BID [facility] Stop: 04/25/21 10:29 Last Admin: 03/27/21 07:56 Dose: 12.5 mg Documented by: Prednisone (Prednisone 5 Mg Tab) 5 mg PO DAILY [facility] Stop: 04/25/21 08:59 Last Admin: 03/27/21 07:56 Dose: 5 mg Documented by: Thiamine HCl (Thiamine Hcl 100 Mg Tab) 100 mg PO QAM [facility] Stop: 04/25/21 08:59 Last Admin: 03/27/21 07:55 Dose: 100 mg Documented by: Tramadol HCl (Tramadol Hcl 50 Mg Tablet) 25 - 50 mg PO Q4H PRN PRN Reason: Pain Stop: 04/24/21 21:14
[2021-03-27 11:35] LABS: Hematocrit (blood only) 28.4 % (42-52); Hemoglobin 9.5 g/dL (14.0-18.0); Mean Corpuscular Hemoglobin 37.3 pg (25-34); Mean Corpuscular Hgb Conc 33.5 g/dL (32-36); Mean Corpuscular Volume 111.4 fL (80-100); Mean Platelet Volume 9.4 fL (7.4-10.4); Platelet Count 161 K/uL (130-400); RDW Coefficient of Variation 13.1 % (11.5-14.5); Red Blood Count 2.55 M/uL (4.7-6.1); White Blood Count 8.28 K/uL (4.8-10.8)
--- NOTE | 2021-03-27 11:58 | Cardiology Progress Note ---
Date of Service March 27, 2021 Assessment & Plan (1) Paroxysmal atrial fibrillation: (2) Fall: (3) Weakness: (4) Ambulatory dysfunction: Plan: I had a long discussion with the patient regarding the natural history and pathophysiology of paroxysmal atrial fibrillation. Annual adjusted stroke risk reviewed. Patient declines oral anticoagulation at this time. Carvedilol transition to metoprolol yesterday due to declining blood pressure. Losartan and diuretic also placed on hold. Continue to monitor telemetry and blood pressure. Torsemide and losartan will not be restarted at discharge. Fall precautions advised. PT/OT. Admission and Anticipated Discharge Date Admission Date: March 25, 2021 Subjective Patient seen and examined the bedside. Telemetry reveals sinus rhythm since admission. Occasional PACs recorded. Patient admitted with fall and lower extremity weakness. ECG on admission demonstrating atrial fibrillation with controlled ventricular response. Cozaar and and torsemide placed on hold. Feeling better today. Weakness improved. Edema controlled. No orthopnea or PND. Denies palpitations. Declines addition of anticoagulation. Review of Systems Review of Systems: All systems reviewed & are unremarkable except as noted in Subjective Physical Exam Constitutional: + ill appearing and + thin Respiratory: normal respiratory effort; no respiratory distress and no labored breathing Auscultation: lungs clear to auscultation bilaterally; no crackles, no rales, no rhonchi and no wheezes Cardiovascular: Rate/Rhythm: regular rate and regular rhythm Heart Sounds: normal S1 and normal S2; no murmur Vessels: radial pulses present; no JVD and no carotid bruit Extremities: no edema Gastrointestinal (Abdomen): Inspection/Auscultation: abdomen normal to inspection and normal bowel sounds; abdomen not distended Percussion/Palpation: abdomen soft; abdomen nontender, no guarding and abdomen not rigid Neurologic: CN's II-XI intact bilaterally and moves all extremities; no focal motor deficits Motor/Sensory: + tremor Bilateral lower extremity weakness. Psychiatric: Orientation: alert and oriented x 3 Affect: + depressed affect Results & Data ([facility]) Vital Signs (Past 12 Hours) Vital Signs Temp Pulse Pulse Resp BP BP Pulse Ox 03/27/21 11:17 36.8 C 53 L 18 113/70 98 03/27/21 07:33 36.9 C 64 18 118/63 97 03/27/21 03:17 36.7 C 70 16 109/61 97 (1) Fall Encounter type: initial encounter Qualified Code(s): W19.XXXA - Unspecified fall, initial encounter
[2021-03-27 12:10] LABS: BUN Creatinine Ratio 18.2 (10-20); Calcium 8.8 mg/dl (8.5-10.1); Creatinine Clr Calc Pharmacy 78.6 ml/min; Est GFR (African American) 96.7 ml/min; Est GFR (Non-African American) 83.5 ml/min; Magnesium 2.3 mg/dl (1.8-2.4); Phosphorus 3.8 mg/dl (2.5-4.9); Potassium 3.9 mmol/L (3.5-5.1)
[2021-03-28 06:34] LABS: Hematocrit (blood only) 26.2 % (42-52); Hemoglobin 8.8 g/dL (14.0-18.0); Mean Corpuscular Hemoglobin 37.6 pg (25-34); Mean Corpuscular Hgb Conc 33.6 g/dL (32-36); Mean Platelet Volume 9.9 fL (7.4-10.4); Platelet Count 160 K/uL (130-400); RDW Standard Deviation 53.1 fL (36.4-46.3); Red Blood Count 2.34 M/uL (4.7-6.1); White Blood Count 5.52 K/uL (4.8-10.8)
[2021-03-28 07:14] LABS: BUN Creatinine Ratio 18.9 (10-20); Calcium 8.6 mg/dl (8.5-10.1); Creatinine Clr Calc Pharmacy 76.8 ml/min; Est GFR (African American) 95.8 ml/min; Est GFR (Non-African American) 82.7 ml/min; Magnesium 2.2 mg/dl (1.8-2.4); Phosphorus 3.7 mg/dl (2.5-4.9); Potassium 3.3 mmol/L (3.5-5.1)
[2021-03-28] MEDS ORDERED: POTASSIUM CHLORIDE CRTAB 20 MEQ TABCR PO STA (07:53)
[2021-03-28] MEDS: allopurinoL 300 MG TAB PO SCH (08:27)
[2021-03-28] MEDS: ATORVASTATIN 10 MG TAB PO SCH (08:27)
[2021-03-28] MEDS: ENOXAPARIN INJ 30 MG/0.3 ML SYR SQ SCH (08:28)
[2021-03-28] MEDS: FOLIC ACID 1 MG TAB PO SCH (08:28)
[2021-03-28] MEDS: CYANOCOBALAMIN 500 MCG TABLET (VITAMIN B-12) PO SCH (08:28)
[2021-03-28] MEDS: METOPROLOL SUCC 25MG EXT REL TAB PO SCH ×2 (08:28→21:03)
[2021-03-28] MEDS: THIAMINE HCL 100 MG TAB PO SCH (08:29)
[2021-03-28] MEDS: predniSONE 5 MG TAB PO SCH (08:29)
--- NOTE | 2021-03-28 14:00 | Hospitalist Progress Note ---
Date of Service March 28, 2021 Assessment & Plan (1) Afib: Plan: New onset A. fib with RVR Now in sinus rhythm w/PVCs Coreg changed to metoprolol losartan and torsemide held, plan to discontinue on DC (given pt's lower BP) Patient refusing anticoagulation for thromboembolic prophylaxis for PAF of unknown duration. Cardiology following Recurrent falls PT/OT. [facility] Hypertension, BP noted to be low at home 90-100s since voluntary weight loss as per patient. stopped diuretics, coreg changed to metoprolol, as above Hyperlipidemia on statin Rx Chronic venous insufficiency on diuretic Rx, leg swelling improved on current regimen as per patient Relapsing polychondritis on steroid Rx Myelodysplastic syndrome status post therapy Chronic anemia, hemoglobin at baseline Past tobacco abuse DVT prophylaxis. Lovenox subcu Full code Admission and Anticipated Discharge Date Admission Date: March 27, 2021 Subjective Patient seen in follow up of Afib, amb. dysfunction Sitting in the chair in NAD Denies any chest pain, shortness of breath, palpitations or any dizziness. Reports feeling better and stronger Inquires about DC to rehab Review of Systems Review of Systems: All systems reviewed & are unremarkable except as noted in Subjective Physical Exam Physical Exam: General: A&Ox3, elderly thin M in NAD HENT: NCAT, MMM, EOMI, PERRL Neck: Supple, normal range of motion CVS: normal rate , regular, no significant LE edema Resp: CTAB, no wheezing, rhonchi, crackles Abdomen: Soft, ND/NT, +BS Extremities: No c/c/e Neuro: face symmetric, speech fluent, moves extremities Skin: warm and dry, no rashes/lesions/erythema MSK: normal ROM, no joint swelling/erythema Results & Data Results & Data ([facility]) Vital Signs (Past 12 Hours) Vital Signs Temp Pulse Pulse Resp BP Pulse Ox 03/28/21 12:02 36.8 C 71 19 112/69 97 03/28/21 07:52 36.8 C 71 18 127/64 96 03/28/21 07:03 64 03/28/21 03:35 36.7 C 72 16 118/71 97 Laboratory Results 03/28/21 03/28/21 Range/Units 05:43 05:43 WBC 5.52 (4.8-10.8) K/uL RBC 2.34 L (4.7-6.1) M/uL Hgb 8.8 L (14.0-18.0) g/dL Hct 26.2 L (42-52) % MCV 112.0 H (80-100) fL MCH 37.6 H (25-34) pg MCHC 33.6 (32-36) g/dL RDW Std Deviation 53.1 H (36.4-46.3) fL RDW Coeff of Otilia 13.0 (11.5-14.5) % Plt Count 160 (130-400) K/uL MPV 9.9 (7.4-10.4) fL Sodium 143 (136-145) mmol/L Potassium 3.3 L D (3.5-5.1) mmol/L Chloride 110 H (98-107) mmol/L Carbon Dioxide 28 (21-32) mmol/L Anion Gap 5.0 (3-11) BUN 16 (7-18) mg/dl Creatinine 0.87 (0.6-1.4) mg/dl Est Cr Clr Drug Dosing 76.8 ml/min Est GFR ( Amer) 95.8 ml/min Est GFR (Non-Af Amer) 82.7 ml/min BUN/Creatinine Ratio 18.9 (10-20) Glucose 93 (70-99) mg/dl Calcium 8.6 (8.5-10.1) mg/dl Phosphorus 3.7 (2.5-4.9) mg/dl Magnesium 2.2 (1.8-2.4) mg/dl Medications Administered Current Inpatient Medications Allopurinol (Allopurinol 300 Mg Tab) 150 mg PO [facility] Stop: 04/25/21 08:59 Last Admin: 03/28/21 08:27 Dose: 150 mg Documented by: Atorvastatin Calcium (Atorvastatin 10 Mg Tab) 5 mg PO [facility] Stop: 04/25/21 08:59 Last Admin: 03/28/21 08:27 Dose: 5 mg Documented by: Cetirizine HCl (Cetirizine Hcl 10 Mg Tablet) 10 mg PO DAILY PRN PRN Reason: Allergy Symptoms Stop: 04/24/21 21:59 Cyanocobalamin (Cyanocobalamin 500 Mcg Tablet (Vitamin B-12)) 1,000 mcg PO [facility] Stop: 04/25/21 08:59 Last Admin: 03/28/21 08:28 Dose: 1,000 mcg Documented by: Enoxaparin Sodium (Enoxaparin Inj 30 Mg/0.3 Ml Syr) 30 mg SQ QAM [facility] Stop: 04/25/21 08:59 Last Admin: 03/28/21 08:28 Dose: Not Given Documented by: Fluticasone Propionate (Fluticasone Propionate Na Spr 16 Gm Btl) 2 sprays NA DAILY PRN PRN Reason: Allergy Symptoms Stop: 04/24/21 21:14 Folic Acid (Folic Acid 1 Mg Tab) 1 mg PO QAM [facility] Stop: 04/25/21 08:59 Last Admin: 03/28/21 08:28 Dose: 1 mg Documented by: Promethazine HCl 12.5 mg/ (Sodium Chloride) 50.5 mls @ 202 mls/hr IV Q6H PRN PRN Reason: Nausea And Vomiting Stop: 04/24/21 21:14 Lorazepam (Lorazepam 0.5 Mg Tab) 0.5 mg PO BID PRN PRN Reason: Anxiety Stop: 04/24/21 21:14 Metoprolol Succinate (Metoprolol Succ 25mg Ext Rel Tab) 12.5 mg PO BID [facility] Stop: 04/25/21 10:29 Last Admin: 03/28/21 08:28 Dose: 12.5 mg Documented by: Prednisone (Prednisone 5 Mg Tab) 5 mg PO DAILY [facility] Stop: 04/25/21 08:59 Last Admin: 03/28/21 08:29 Dose: 5 mg Documented by: Thiamine HCl (Thiamine Hcl 100 Mg Tab) 100 mg PO QAM [facility] Stop: 04/25/21 08:59 Last Admin: 03/28/21 08:29 Dose: 100 mg Documented by: Tramadol HCl (Tramadol Hcl 50 Mg Tablet) 25 - 50 mg PO Q4H PRN PRN Reason: Pain Stop: 04/24/21 21:14
[2021-03-29 06:29] LABS: BUN Creatinine Ratio 16.1 (10-20); Creatinine Clr Calc Pharmacy 75.1 ml/min; Est GFR (African American) 94.9 ml/min; Est GFR (Non-African American) 81.9 ml/min; Potassium 3.7 mmol/L (3.5-5.1)
--- NOTE | 2021-03-29 07:23 | Hospitalist Progress Note ---
Date of Service March 29, 2021 Assessment & Plan (1) Afib: Plan: New onset A. fib with RVR Now in sinus rhythm w/PVCs Coreg changed to metoprolol losartan and torsemide held, plan to discontinue on DC (given pt's lower BP) Patient refusing anticoagulation for thromboembolic prophylaxis for PAF of unknown duration. Cardiology following Recurrent falls, ambulatory dysfunction PT/OT. [facility] -however patient was [facility]. I finished [facility], they offered family appeal however patient's family declined to appeal. Also offered SNF however patient adamantly declines any other facility besides [facility]. Patient will be therefore discharged home with previously arranged home help. Patient's sister was also contacted and aware of the situation. Hypertension, BP noted to be low at home 90-100s since voluntary weight loss as per patient. stopped diuretics, coreg changed to metoprolol, as above Hyperlipidemia on statin Rx Chronic venous insufficiency on diuretic Rx, leg swelling improved on current regimen as per patient Relapsing polychondritis on steroid Rx Myelodysplastic syndrome status post therapy Chronic anemia, hemoglobin at baseline Past tobacco abuse Dispo: DC home as above Follow up w/ PCP arranged. Admission and Anticipated Discharge Date Admission Date: March 27, 2021 Subjective Patient seen in follow up of Afib, amb. dysfunction Sitting in the chair in NAD Denies any chest pain, shortness of breath, palpitations or any dizziness. Reports feeling better and stronger [facility] declined, and patient not willing to go anywhere else, eager to be discharged home Review of Systems Review of Systems: All systems reviewed & are unremarkable except as noted in Subjective Physical Exam Physical Exam: General: A&Ox3, elderly thin M in NAD HENT: NCAT, MMM, EOMI, PERRL Neck: Supple, normal range of motion CVS: normal rate , regular, no significant LE edema Resp: CTAB, no wheezing, rhonchi, crackles Abdomen: Soft, ND/NT, +BS Extremities: No c/c/e Neuro: face symmetric, speech fluent, moves extremities Skin: warm and dry, no rashes/lesions/erythema MSK: normal ROM, no joint swelling/erythema Results & Data Results & Data ([facility]) Vital Signs (Past 12 Hours) Vital Signs Temp Pulse Resp BP BP Pulse Ox 03/29/21 04:09 36.8 C 60 16 114/62 94 03/28/21 22:55 37.2 C 64 16 129/75 99 03/28/21 19:56 36.7 C 60 18 102/65 97 Laboratory Results 03/29/21 03/29/21 Range/Units 05:42 05:42 Sodium 142 (136-145) mmol/L Potassium 3.7 (3.5-5.1) mmol/L Chloride 112 H (98-107) mmol/L Carbon Dioxide 29 (21-32) mmol/L Anion Gap 1.0 L (3-11) BUN 14 (7-18) mg/dl Creatinine 0.89 (0.6-1.4) mg/dl Est Cr Clr Drug Dosing 75.1 ml/min Est GFR ( Amer) 94.9 ml/min Est GFR (Non-Af Amer) 81.9 ml/min BUN/Creatinine Ratio 16.1 (10-20) Glucose 95 (70-99) mg/dl Calcium 9.0 (8.5-10.1) mg/dl Phosphorus 3.8 (2.5-4.9) mg/dl Magnesium 1.8 (1.8-2.4) mg/dl Medications Administered Current Inpatient Medications Allopurinol (Allopurinol 300 Mg Tab) 150 mg PO [facility] Stop: 04/25/21 08:59 Last Admin: 03/29/21 08:17 Dose: 150 mg Documented by: Atorvastatin Calcium (Atorvastatin 10 Mg Tab) 5 mg PO [facility] Stop: 04/25/21 08:59 Last Admin: 03/29/21 08:16 Dose: 5 mg Documented by: Cetirizine HCl (Cetirizine Hcl 10 Mg Tablet) 10 mg PO DAILY PRN PRN Reason: Allergy Symptoms Stop: 04/24/21 21:59 Cyanocobalamin (Cyanocobalamin 500 Mcg Tablet (Vitamin B-12)) [facility] Stop: 04/25/21 08:59 Last Admin: 03/29/21 08:17 Dose: 1,000 mcg Documented by: Enoxaparin Sodium (Enoxaparin Inj 30 Mg/0.3 Ml Syr) 30 mg [facility] Stop: 04/25/21 08:59 Last Admin: 03/29/21 08:17 Dose: 30 mg Documented by: Fluticasone Propionate (Fluticasone Propionate Na Spr 16 Gm Btl) 2 sprays NA DAILY PRN PRN Reason: Allergy Symptoms Stop: 04/24/21 21:14 Folic Acid (Folic Acid 1 Mg Tab) 1 mg PO QAM [facility] Stop: 04/25/21 08:59 Last Admin: 03/29/21 08:17 Dose: 1 mg Documented by: Promethazine HCl 12.5 mg/ (Sodium Chloride) 50.5 mls @ 202 mls/hr IV Q6H PRN PRN Reason: Nausea And Vomiting Stop: 04/24/21 21:14 Lorazepam (Lorazepam 0.5 Mg Tab) 0.5 mg PO BID PRN PRN Reason: Anxiety Stop: 04/24/21 21:14 Metoprolol Succinate (Metoprolol Succ 25mg Ext Rel Tab) 12.5 mg PO BID [facility] Stop: 04/25/21 10:29 Last Admin: 03/29/21 08:16 Dose: 12.5 mg Documented by: Prednisone (Prednisone 5 Mg Tab) 5 mg PO DAILY [facility] Stop: 04/25/21 08:59 Last Admin: 03/29/21 08:16 Dose: 5 mg Documented by: Thiamine HCl (Thiamine Hcl 100 Mg Tab) 100 mg PO QAM [facility] Stop: 04/25/21 08:59 Last Admin: 03/29/21 08:16 Dose: 100 mg Documented by: Tramadol HCl (Tramadol Hcl 50 Mg Tablet) 25 - 50 mg PO Q4H PRN PRN Reason: Pain Stop: 04/24/21 21:14
[2021-03-29] MEDS ORDERED: POTASSIUM CHLORIDE CRTAB 20 MEQ TABCR PO STA (07:28)
[2021-03-29 08:04] LABS: Magnesium 1.8 mg/dl (1.8-2.4); Phosphorus 3.8 mg/dl (2.5-4.9)
[2021-03-29] MEDS: predniSONE 5 MG TAB PO SCH (08:16)
[2021-03-29] MEDS: METOPROLOL SUCC 25MG EXT REL TAB PO SCH (08:16)
[2021-03-29] MEDS: THIAMINE HCL 100 MG TAB PO SCH (08:16)
[2021-03-29] MEDS: ATORVASTATIN 10 MG TAB PO SCH (08:16)
[2021-03-29] MEDS: ENOXAPARIN INJ 30 MG/0.3 ML SYR SQ SCH (08:17)
[2021-03-29] MEDS: CYANOCOBALAMIN 500 MCG TABLET (VITAMIN B-12) PO SCH (08:17)
[2021-03-29] MEDS: allopurinoL 300 MG TAB PO SCH (08:17)
[2021-03-29] MEDS: FOLIC ACID 1 MG TAB PO SCH (08:17)
--- NOTE | 2021-03-29 14:21 | Discharge Summary ---
Date of Service March 29, 2021 Admission HPI Per Admitting Provider History obtained from patient and records. 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 Recent confinement last week for fall/ambulatory dysfunction. Patient refused rehab recommendation. Around 2 AM, patient slid off his bed landing on the ground. He could not get up from the floor. No headache/head trauma, chest pain, S OB, syncope, dizziness. No unusual leg swelling. Patient waited service station cashier to holler out for help to a neighbor who subsequently helped him get back to bed. Increased ambulatory difficulty noted at home. SBP 90s upon arrival at the ER. Intermittent A. fib noted on the monitor as per ED monitoring and evaluation advisor. Medical History as above Surgical History : Dental surgery, tonsillectomy, cataract surgeries, umbilical hernia repair Family History : Heart disease, thyroid disease, hypertension Personal/Social history : Past tobacco abuse, daily alcohol intake as per records denies abuse, retired hotel/nc manager Admission Exam Per Admitting Provider GENERAL: Comfortable, slightly anxious, no respiratory distress SKIN: Pallor, warm HEENT: Bespectacled, pale palpebral conjunctivae, no ptosis, dry buccal mucosa NECK : Supple, no tenderness CHEST : CTA, no tenderness HEART : irregular, no obvious murmurs ABDOMEN: Some distention, nontender EXTREMITIES : No LE swelling/tenderness, no other conspicuous deformities noted NEUROLOGIC : Coherent, no facial asymmetry, no other gross focality Principal Diagnosis A. fib with RVR Frequent falls, ambulatory dysfunction Discharge Exam General: A&Ox3, elderly thin M in NAD HENT: NCAT, MMM, EOMI, PERRL Neck: Supple, normal range of motion CVS: normal rate , regular, no significant LE edema Resp: CTAB, no wheezing, rhonchi, crackles Abdomen: Soft, ND/NT, +BS Extremities: No c/c/e Neuro: face symmetric, speech fluent, moves extremities Skin: warm and dry, no rashes/lesions/erythema MSK: normal ROM, no joint swelling/erythema Discharge Data Allergies Allergy/AdvReac Type Severity Reaction Status Date / Time codeine Allergy Mild bp Verified 03/25/21 17:22 increases guaifenesin Allergy Mild bp Verified 03/25/21 17:22 increases lactose Allergy Mild Gastrointestinal Verified 03/25/21 17:22 Upset tamsulosin Allergy Hives Unverified 03/25/21 17:22 Consultations 03/25/21 18:55 ED Decision to Admit Stat 03/25/21 21:15 Consult Cardiology Routine Ordered Studies 03/25/21 17:22 CT cervical spine wo con Stat CT head/brain wo con Stat Hospital Course (1) Afib: New onset A. fib with RVR Now in sinus rhythm w/PVCs Coreg changed to metoprolol losartan and torsemide held, plan to discontinue on DC (given pt's lower BP) Patient refusing anticoagulation for thromboembolic prophylaxis for PAF of unknown duration. Cardiology following Recurrent falls, ambulatory dysfunction PT/OT. [facility] -however patient was declined. I finished peer to peer, they offered family appeal however patient's family declined to appeal. Also offered SNF however patient adamantly declines any other facility besides [facility]. Patient will be therefore discharged home with previously arranged home help. Patient's sister was also contacted and aware of the situation. Hypertension, BP noted to be low at home 90-100s since voluntary weight loss as per patient. stopped diuretics, coreg changed to metoprolol, as above Hyperlipidemia on statin Rx Chronic venous insufficiency on diuretic Rx, leg swelling improved on current regimen as per patient Relapsing polychondritis on steroid Rx Myelodysplastic syndrome status post therapy Chronic anemia, hemoglobin at baseline Past tobacco abuse Dispo: DC home as above Follow up w/ PCP arranged. Total Time Total Time Spent Total Time Spent (In Minutes): 40 Discharge Plan Discharge Items Patient Disposition: Home - Home Health Services Reason For Visit: AF, AMBULATORY DYSFUNCTION Discharge Diagnosis: A. fib with RVR Frequent falls, ambulatory dysfunction Activity: Per Instructions section Non-emergency contact: Primary Care Provider and Appliance Painter And Refinisher Call non-emergency contact if: you have any medication questions and your symptoms worsen Follow-up/Referrals: Tian Harrington DO [Primary Care Provider] - (Date & Time 04/05/2021 12:00 PM Provider Tian Harrington DO Department General Internal Medicine [facility] ) Diet: Regular Addtl Attending Provider Instructions: Follow-up with your primary care doctor, the appointment was scheduled for you for April 05. As discussed previously, you will also need to follow-up with neurology. Your medications were changed as following: Stop taking Coreg, instead take metoprolol as prescribed. In addition, do not take losartan or torsemide anymore. If you are able to check your blood pressure at home, please do so and record these numbers. Make sure to bring the log of these numbers to your healthcare providers so your medications can be further adjusted. Pending Studies at Discharge: No Stand-Alone Forms: My [facility], Smoking Cessation Medications and DC Order Prescriptions: New metoprolol succinate 25 mg Tablet Extended Release 24 Hr 12.5 mg PO BID 30 Days Qty: 30 RF: 0 Continued atorvastatin 10 mg Tablet 5 mg PO QAM RF: 0 triamcinolone acetonide 0.5 % Cream 1 applic TOPICAL BID PRN (Reason: Rash) RF: 0 cetirizine 10 mg Tablet 10 mg PO DAILY PRN (Reason: Allergy Symptoms) RF: 0 clobetasol 0.05 % Cream 1 applic TOPICAL DAILY PRN (Reason: Rash) RF: 0 lorazepam 0.5 mg Tablet 0.5 mg PO BID PRN (Reason: Anxiety) RF: 0 allopurinol 300 mg Tablet 150 mg PO QAM RF: 0 fluticasone propionate [Flonase Allergy Relief] 50 mcg/actuation [place],Suspension 2 spray INTRANASAL DAILY PRN (Reason: Allergy Symptoms) RF: 0 metronidazole 1 % Cream 1 applic TOPICAL DAILY PRN (Reason: Rash) RF: 0 Centrum Silver Men 300-600-300 mcg Tablet 1 tab PO QAM RF: 0 prednisone 5 mg tablet 5 mg PO DAILY RF: 0 cyanocobalamin (vitamin B-12) 500 mcg Tablet 1,000 mcg PO QAM Qty: 30 RF: 0 folic acid 1 mg Tablet 1 mg PO QAM Qty: 30 RF: 0 thiamine HCl (vitamin B1) [Vitamin B-1] 100 mg Tablet 100 mg PO QAM Qty: 30 RF: 0 Discontinued torsemide 5 mg Tablet 5 mg PO QAM RF: 0 carvedilol 3.125 mg Tablet 3.125 mg PO BID RF: 0 losartan 50 mg tablet 50 mg PO DAILY RF: 0 Discharge Orders: Discharge Order (Routine); Ordered 03/29/21 Ordered By: Lowell Britt/Other Patient Handouts: Exercises to Prevent Falls Admission Data Admit Date/Time: 03/27/21 21:41 Attending Provider: Lowell Field Admit Provider: Bartolome Garcia Primary Care Provider: Tian Harrington Other Providers: Bartolome Garcia ; Graham Higgins ; [facility] ; [facility] ; Ash Sparks Other Interventions: Discharge Summary Assessment (RN) Last Done: 03/29/21 14:16
== END 2021-03-29 14:30 | disposition home health service (06) ==
LOC: ED 16:40 → 2S 16:40 → SUATTDRO 20:10 → 2S 20:48
DX: E78.5 Hyperlipidemia, unspecified; I87.2 Venous insufficiency (chronic) (peripheral); M10.9 Gout, unspecified; I48.0 Paroxysmal atrial fibrillation; Z88.5 Allergy status to narcotic agent; Z88.8 Allergy status to other drugs, medicaments and biological substances; Z20.822 Contact with and (suspected) exposure to COVID-19; Z79.899 Other long term (current) drug therapy; R26.9 Unspecified abnormalities of gait and mobility; D46.9 Myelodysplastic syndrome, unspecified; R29.6 Repeated falls; I10 Essential (primary) hypertension; M19.90 Unspecified osteoarthritis, unspecified site; W06.XXXA Fall from bed, initial encounter; Z87.891 Personal history of nicotine dependence; D64.9 Anemia, unspecified